=== PATIENT | male | born 1995 | race Two or more races ===

== ENCOUNTER 2020-05-27 11:26 | Outpatient (REF) | payer OTHER, SELFPAY | END 2020-05-27 11:27 | disposition home or self-care (01) | LOC: HO.LAB 11:26 | PROVIDERS: Visit Provider Internal Medicine | DX: Z20.828 Contact with and (suspected) exposure to other viral communicable diseases (principal) | CPT/HCPCS: 87635 ==

== ENCOUNTER 2020-07-20 11:54 | Outpatient (REF) | payer SELFPAY | END 2020-07-20 11:55 | disposition home or self-care (01) | LOC: HO.LAB 11:54 | PROVIDERS: Visit Provider Internal Medicine | DX: Z20.828 Contact with and (suspected) exposure to other viral communicable diseases (principal) | CPT/HCPCS: C9803; U0003 ==

== ENCOUNTER 2020-09-10 09:09 | Outpatient (REF) | payer SELFPAY | END 2020-09-10 09:10 | disposition home or self-care (01) | LOC: HO.LAB 09:09 | PROVIDERS: Visit Provider Internal Medicine | DX: Z20.822 Contact with and (suspected) exposure to COVID-19 (principal) | CPT/HCPCS: 36415; C9803; U0003; U0005 ==

== ENCOUNTER 2020-12-05 16:34 | Emergency (ER) | payer SELFPAY ==
[2020-12-05 16:36] VITALS: BP 116/77; PULSE 90; RESP 16; TEMP 36.2; O2SAT 99; BMI 36.2
[2020-12-05] MEDS: Tetracaine HCl/PF 0.5% Oph Sol 4 ML DROPS 3 DROP EYE-LEFT (18:11)
[2020-12-05] MEDS: Fluorescein Sodium STRIP 1 STRIP EYE-LEFT (18:11)
[2020-12-05 18:41] LABS: MANUAL DIFF FLAG NO
[2020-12-05 18:43] LABS: Basophils Absolute Auto 0.1 X10*3/uL (0.0-0.2); Basophils Percent Auto 0.9 % (0-2); Eosinophils Absolute Auto 0.1 X10*3/uL (0.0-0.4); Eosinophils Percent Auto 0.7 % (0-4); Hematocrit 35.7 % (42-52); Hemoglobin 11.8 g/dl (14.0-18.0); Imm Gran Abs Auto 0.03 X10*3/uL (0.00-0.03); Imm Gran Pct Auto 0.4 % (0.0-0.4); Lymphocytes Absolute Auto 2.3 X10*3/uL (1.2-4.9); Lymphocytes Percent Auto 28.7 % (20-40); Mean Corpuscular HGB Conc 33.1 g/dl (31.0-36.0); Mean Corpuscular Hemoglobin 31.6 pg (27.0-33.0); Mean Corpuscular Volume 95.7 fL (80-98); Mean Platelet Volume 9.9 fL (9.4-12.4); Monocytes Absolute Auto 0.6 X10*3/uL (0.1-1.2); Monocytes Percent Auto 7.3 % (2-11); Platelet Count 225 X10*3/uL (160-400); Red Blood Count 3.73 X10*6/uL (4.60-5.80); Red Cell Distribution Width 14.6 % (11.0-16.0); White Blood Count 8.1 X10*3/uL (4.8-10.8)
[2020-12-05 19:16] LABS: Alanine Aminotransferase 33 U/L (0-40); Alkaline Phosphatase 64 U/L (39-117); Anion Gap 13 (12-20); Aspartate Amino Transferase 48 U/L (5-37); Bilirubin Direct 0.2 mg/dL (0.0-0.5); Bilirubin Total 0.7 mg/dL (0.0-1.0); Blood Urea Nitrogen 14 mg/dL (9-16); Calcium 9.7 mg/dL (8.4-10.2); Carbon Dioxide 28 mmol/L (22-29); Chloride 101 mmol/L (96-108); Creatinine Clr Calc Pharmacy 109.2; Estimated Glomerular Filt Rate > 60; Glucose Random 94 mg/dL (60-115); Magnesium 2.4 mg/dL (1.6-2.6); Potassium 4.2 mmol/L (3.3-5.1); Sodium 138 mmol/L (135-145); Total Protein 7.8 g/dL (6.5-8.0)
[2020-12-05 19:36] LABS: TSH reflex Free T4 73.96 uIU/mL (0.32-4.0)
--- NOTE | 2020-12-05 19:56 | ED_ITS ---
HPI - Eye Problem General Chief complaint: Eye Problems Stated complaint: Eye problem Time Seen by Provider: 12/05/20 17:53 Source: patient Mode of arrival: ambulatory History of Present Illness HPI Narrative: 25-year-old male with a past medical history of thyroidectomy presenting to the ED complaining of left eye erythema, tearing/drainage, pruritus, and burning x1 week. Also reports generalized fatigue/increased lethargy x multiple months, has been non compliant with levothyroxine for almost 1 year due to issues with PCP. Denies vision change/loss, denies wearing contacts/glasses, blurry vision/double vision, headache, fever/chills, CP/SOB, abdominal pain, nausea/vomiting, lightheadedness/dizziness, waking/loss, diaphoresis chief complaint: eye redness Related Data Home Medications Medication Instructions Recorded Confirmed levothyroxine 150 mcg PO DAILY 12/05/20 12/05/20 Previous Rx's Medication Instructions Recorded levothyroxine 150 mcg PO DAILY 30 Days #30 tab 12/05/20 olopatadine 1 drp OPHTHALMIC (EYE) BID 7 Days 12/05/20 #5 ml Allergies Allergy/AdvReac Type Severity Reaction Status Date / Time No Known Allergies Allergy Verified 12/05/20 17:19 [No Known Allergies*] Review of Systems Review of Systems: Constitutional: No Weight loss, No Fever, No Chills, +Fatigue, + Malaise ENT/Mouth: No Hearing loss, No Ear Pain, NNo Hoarseness, No sore throat, No Rhinorrhea Eyes: No Eye Pain, No Swelling, + Redness, No Foreign Body, + Discharge, No Vision Changes Cardiovascular: No Chest Pain, No SOB, No Edema, No Palpitations Respiratory: No Cough, No Smoke Exposure, No Dyspnea Gastrointestinal: No Nausea, No Vomiting, No Diarrhea, No Abdominal pain Musculoskeletal: No joint pain, No Myalgias, No Joint Swelling Skin: No Skin Lesions, No rash Neuro: No Weakness, No Paresthesias, No Dizziness, No Headache Endocrine: No Temperature Intolerance Yes all other systems are reviewed and are negative [facility] Past Medical History Attestation statement: The following information was validated with the patient. Surgical History (Updated 12/05/20 @ 16:39 by Augustina Boucher RN) H/O thyroidectomy Social History Social History Alcohol intake: never Smoked in Last 30 Days: No Use of substances other than those prescribed or required for medical reasons: No Advance Directives: No Advance Directives Information Provided: Yes Physical Exam Vital Signs: Vital Signs: Last Vital Signs Temp 97.2 F 12/05/20 16:36 Pulse 90 12/05/20 16:36 Resp 16 12/05/20 16:36 BP 116/77 12/05/20 16:36 Pulse Ox 99 12/05/20 16:36 Body Mass Index 36.2 Const: General: cooperative, healthy appearing, comfortable and no acute distress Orientation/consciousness: patient oriented x3 Limitations: no limitations HENMT: Head: Yes normal to inspection Ears: hearing grossly normal bilaterally General nose exam: Normal external nose present Face and sinus: Yes normal facial exam Mouth: Normal oral and palatal mucosa present Eyes: Other: Left lower eyelid with mild swelling/puffiness and erythema with clear drainage/tearing from eye. For seen use without uptake, no evidence of corneal abrasion. No conjunctival injection General: appearance normal, both eyes and all related structures Periorbital: periorbital findings abnormal Conjunctivae: conjunctivae normal Sclerae: sclerae normal Corneas: corneas normal and fluorescein used Pupils: Equal, round and reactive pupils present EOM: EOMs intact bilaterally Direct Ophthalmoscopy: no photophobia Neck: Neck: Yes normal visual inspection and Yes no meningeal signs Resp: Effort & Inspection: normal respiratory effort Auscultation: clear to auscultation bilaterally, no rales, no rhonchi and no wheezes Cardio: Rate: regular rate Heart sounds: S1 normal heart sound present and S2 normal heart sound present GI: Inspection: Yes normal to inspection Palpation (GI): Soft to palpation, nontender, no guarding and not rigid Skin: Rashes: no rashes Wounds: no wounds Neuro: General: patient oriented x3, tone normal, moves all extremities and no meningeal signs Cranial nerves: Yes Equal, round and reactive pupils present Gait exam (Neuro): Normal gait present Extrem: General: Yes normal to inspection Course Course Course Narrative: -no leukocytosis. H&H stable slightly lower than baseline. AST mildly elevated -TSH markedly high with low free T4 consistent with medication noncompliance > will initiate patient back on his levothyroxine 150 mcg daily, stressed importance of follow-up with his PCP MDM - Eye Problem MDM Narrative Medical decision making narrative: 25-year-old male with a past medical history of thyroidectomy presenting to the ED complaining of left eye erythema, tearing/drainage, pruritus, and burning x1 week. Also reports generalized fatigue/increased lethargy x multiple months, has been non compliant with l evothyroxine for almost 1 year due to issues with PCP. On exam VSS, NAD/well- appearing, eye exam consistent with viral/allergic conjunctivitis. No fluorescein uptake. No evidence periorbital or orbital cellulitis. Concern for hypothyroidism due to medication noncompliance, unlikely myxedema coma. Rule out metabolic abnormalities an infectious etiology Plan: Labs, visual acuity, fluorescein staining Medical Records Attestation: I reviewed the patient's medical records. Lab Data Attestation: I reviewed the patient's lab results. Result diagrams: 12/05/20 18:36 12/05/20 18:36 Labs: Lab Results 12/05/20 12/05/20 Range/Units 18:36 18:36 WBC 8.1 (4.8-10.8) X10*3/uL RBC 3.73 L (4.60-5.80) X10*6/uL Hgb 11.8 L (14.0-18.0) g/dl Hct 35.7 L (42-52) % MCV 95.7 (80-98) fL MCH 31.6 (27.0-33.0) pg MCHC 33.1 (31.0-36.0) g/dl RDW 14.6 (11.0-16.0) % Plt Count 225 (160-400) X10*3/uL MPV 9.9 (9.4-12.4) fL Immature Gran % (Auto) 0.4 (0.0-0.4) % Neut % (Auto) 62.0 (45-73) % Lymph % (Auto) 28.7 (20-40) % [place] % (Auto) 7.3 (2-11) % Eos % (Auto) 0.7 (0-4) % Baso % (Auto) 0.9 (0-2) % Lymph # (Auto) 2.3 (1.2-4.9) X10*3/uL [place] # (Auto) 0.6 (0.1-1.2) X10*3/uL Eos # (Auto) 0.1 (0.0-0.4) X10*3/uL Baso # (Auto) 0.1 (0.0-0.2) X10*3/uL Abs Immat Gran (auto) 0.03 (0.00-0.03) X10*3/uL Absolute Neuts (auto) 5.0 (2.0-8.3) X10*3/uL Absolute Nucleated RBC 0.000 (0.0-0.012) X10*3/uL Nucleated RBC % (auto) 0.0 (0.0-0.2) /100WBC Sodium 138 (135-145) mmol/L Potassium 4.2 (3.3-5.1) mmol/L Chloride 101 (96-108) mmol/L Carbon Dioxide 28 (22-29) mmol/L Anion Gap 13 (12-20) BUN 14 (9-16) mg/dL Creatinine 1.35 (0.5-1.4) mg/dL Estim Creat Clear Calc 109.2 Estimated GFR > 60 Random Glucose 94 (60-115) mg/dL Calcium 9.7 (8.4-10.2) mg/dL Magnesium 2.4 (1.6-2.6) mg/dL Total Bilirubin 0.7 (0.0-1.0) mg/dL Direct Bilirubin 0.2 (0.0-0.5) mg/dL AST 48 H (5-37) U/L ALT 33 (0-40) U/L Alkaline Phosphatase 64 (39-117) U/L Total Protein 7.8 (6.5-8.0) g/dL Albumin 5.0 (3.5-5.0) g/dL TSH 73.96 H (0.32-4.0) uIU/mL Free T4 < 0.40 L (0.71-1.85) ng/dL Discharge Plan Discharge Clinical Impression: Acute allergic conjunctivitis, Hypothyroidism Patient Disposition: Home, Self-Care Instructions: Hypothyroidism (ED), Conjunctivitis (ED) Additional Instructions: Your blood work shows evidence of hypothyroid consistent with you not taking your levothyroxine. Re-initiate your previously prescribed dose. It is crucial that he follow-up with a primary care doctor soon as possible. You need these levels monitored very closely A limp today in drops will help with your eye irritation/allergic conjunctivitis. In addition you can take [id number] Claritin or Zyrtec daily and Benadryl at night If her symptoms persist or worsen, you have fever, headache, visual change/loss, return to the ED Prescriptions: New levothyroxine 150 mcg tablet 150 mcg PO DAILY 30 Days Qty: 30 RF: 0 olopatadine 0.1 % drops 1 drp ophthalmic (eye) BID 7 Days Qty: 5 RF: 0 No Action levothyroxine 150 mcg Tablet 150 mcg PO DAILY RF: 0 Referrals: Robert Tobar PA-C [Physician [employer]] - 2 days Po,Joo Balderrama MD [Physician] - 2 days
[2020-12-05 20:09] LABS: Free T4 (Free Thyroxine) < 0.40 ng/dL (0.71-1.85)
== END 2020-12-05 20:54 | disposition home or self-care (01) ==
PROVIDERS: Physician Assistant; Emergency Provider Emergency Medicine; PCP Internal Medicine
DX: H10.12 Acute atopic conjunctivitis, left eye (principal); E03.9 Hypothyroidism, unspecified; Z91.14 Patient's other noncompliance with medication regimen
CPT/HCPCS: 36415; 80048; 80076; 83735; 84439; 84443; 85025; 99282; 99283; 99284

== ENCOUNTER 2021-04-03 08:54 | Emergency (ER) | payer MEDICAID, SELFPAY ==
--- NOTE | ~2021-04-03 | XR_ITS ---
EXAMINATION: XR CHEST CLINICAL INFORMATION: Healing out of breath when he wakes up. Question sleep apnea. COMPARISON: Previous exam most recent October 2018 TECHNIQUE: 2 views of the chest were obtained. FINDINGS: No significant abnormality is noted involving the heart, lungs, mediastinum, bony thorax or soft tissues. XR/XR chest 2V IMPRESSION: Unremarkable examination.
[2021-04-03 08:59] VITALS: BP 110/70; PULSE 69; RESP 18; TEMP 36.9; O2SAT 98; BMI 32.1
--- NOTE | 2021-04-03 10:09 | ED_ITS ---
HPI - SOB/Dyspnea General Chief Complaint: General Medical Stated Complaint: WOKE UP DIFF BREATHING CHOKING Time Seen by Provider: 04/03/21 09:12 Source: patient Mode of arrival: ambulatory Limitations: no limitations History of Present Illness HPI Narrative: 25-year-old male presenting to the ED with complaints of worsening shortness of breath over the past 3 weeks when he wakes up in the mornings usually at least once a week for the past 3 weeks. He reports that he sleeps with his and his autistic son and his has told him that he sounds like he stays without breathing occasionally throughout the night and he snores. He contacted his PCP and has a follow-up appointment in the next few weeks although was concerned because he had an episode this morning. He reports he feels nasal congestion that has increased over the past 3 weeks. Reports that he does not want to be tested for COVID and does not believe he has COVID because he works at [employer] and is completely vaccinated. He believes he has sleep apnea but wants to make sure that he has nothing on his chest. He denies any fevers, chills, chest pain, cough, sore throat, dyspnea on exertion, orthopnea, palpitations, recent travel or sick contacts, hypercoagulation disorder, any estrogen usage, history of PE or DVT, recent surgery or immobilization or any IV drug use. Denies any other symptoms complaints or concerns at this time. MD elicited complaint: shortness of breath Onset (ago): week(s) (Intermittently when he wakes up over the past 3 weeks al though resolved shortly after) Context: other (Overnight) Timing: intermittent (Approximately 1 episode once a week) Severity: moderate Exacerbating factors: nothing Relieving factors: nothing Associated symptoms: denies other symptoms Treatment prior to arrival: none Related Data Home oxygen amount: none Home Medications Medication Instructions Recorded Confirmed levothyroxine 150 mcg tablet 150 mcg PO DAILY 12/05/20 12/05/20 Previous Rx's Medication Instructions Recorded levothyroxine 150 mcg tablet 150 mcg PO DAILY 30 Days #30 tab 12/05/20 olopatadine 0.1 % eye drops 1 drp OPHTHALMIC (EYE) BID 7 Days 12/05/20 #5 ml albuterol sulfate 90 mcg/actuation 1 inh INHALATION QID PRN #8.5 g 04/03/21 aerosol inhaler fluticasone propionate 50 1 spray INTRANASAL BID #16 g 04/03/21 mcg/actuation nasal spray,suspension (Flonase Allergy Relief) loratadine 10 mg tablet (Claritin) 10 mg PO BID PRN #30 tab 04/03/21 Allergies Allergy/AdvReac Type Severity Reaction Status Date / Time No Known Allergies Allergy Verified 12/05/20 17:19 [No Known Allergies*] Review of Systems Review of Systems: Constitutional : No Weight loss, No Fever, No Chills, No Night Sweats, No Fatigue, No Malaise ENT/Mouth : No Hearing loss, No Ear Pain, No Nasal Congestion, No Sinus Pain, No Hoarseness, No sore throat, No Rhinorrhea, No Swallowing Difficulty Eyes: No Eye Pain, No Swelling, No Redness, No Foreign Body, No Discharge, No Vision Changes Cardiovascular : Positive shortness of breath when he awakens intermittently over the past 3 weeks, no shortness of breath at this time, No Chest Pain, No Dyspnea on Exertion, No Orthopnea, No Edema, No Palpitations Respiratory : No Cough, No Sputum, No Wheezing, No Smoke Exposure, No Dyspnea Gastrointestinal : No Nausea, No Vomiting, No Diarrhea, No Constipation, No abdominal Pain, No Hematochezia, No Melena Genitourinary : no irregular bleeding, No Dysuria, No Urinary Frequency, No Hematuria, No Urinary Incontinence, No Urgency, No Flank Pain, No Urinary Flow Changes, No Hesitancy Musculoskeletal : No joint pain, No Myalgias, No Joint Swelling Skin : No Skin Lesions, No rash Neuro : No Weakness, No Numbness, No Paresthesias, No Loss of Consciousness, No Dizziness, No Headache Psych : No Anxiety/Panic, No Depression, No SI/HI/AH/VH, No Social Issues, Heme/Lymph: No Bruising, No Bleeding,No Lymphadenopathy Endocrine : No Polyuria, No Polydipsia, No Temperature Intolerance Yes all other systems are reviewed and are negative [facility] Past Medical History Attestation statement: The following information was validated with the patient. Surgical History H/O thyroidectomy Social History Social History Alcohol intake: never Advance Directives: Yes Advance Directives Information Provided: No Advance Directives on File: No Physical Exam Vital Signs: Vital Signs: Last Vital Signs Temp 98.4 F 04/03/21 08:59 Pulse 69 04/03/21 08:59 Resp 18 04/03/21 08:59 BP 110/70 04/03/21 08:59 Pulse Ox 98 04/03/21 08:59 Body Mass Index 32.1 vital signs have been reviewed as normal and appeared to be correct. Blood pressure normal. Heart rate normal. Respiration rate normal. Temperature normal. Oxygen saturation normal. Appearance: Alert. Oriented X3. No acute distress. Head: Normal external exam. Normocephalic. Atraumatic. Eyes: PERRLA. EOMI. Conjunctiva and sclera normal. Eyelids normal. ENT: EAC normal. TM's Normal. Pharynx normal. Uvula midline. Moist mucous membranes. No trismus noted. No drooling noted. No muffled voice noted. Neck: Normal inspection. Neck supple. FROM. No adenopathy. Thyroid Normal. No meningeal signs. No neck mass noted. CVS: Normal heart rate and rhythm. Heart sound normal. Pulses normal throughout. No murmurs/rales/gallops. Respiratory: No respiratory distress. Painless inspiration. Breath sounds normal. No wheezes/rales/rhonchi noted. Chest nontender. No accessory muscle usage noted or decreased air movement noted. Back: Full range of motion noted. No rashes/lesion/induration/fluctuance or signs of infection noted. Skin: Skin warm and dry. Normal skin color. Normal skin turgor. No rashes/lesions/lacerations noted. Extremities: No lower extremity edema. No calf tenderness is noted. Extremities exhibit normal range of motion. Extremities nontender. Neuro: Oriented X 3. No motor deficit. No sensory deficit. Reflexes normal. Normal steady gait. No focal neuro deficits noted. Vascular: + radial pulses/+ 2 distal pedal pulses/+2 dorsalis pedis b/l. Normal cap refill. No cyanosis noted to upper extremity nails and lower extremity toes nails. Course Course Course Narrative: 25-year-old male presenting to the ED with complaints of worsening shortness of breath when he awakens 1 episode once a week over the past 3 weeks with associated snoring and stand without breath per his spouse believes he has sleep apnea. Has a follow-up appointment with his PCP this month although wanted to make sure he had nothing on his chest. Perc negative. Not consistent with LA. not consistent with aortic dissection. Not consistent with COVID. Not consistent with asthma at this time. X-ray obtained and negative for any acute processes. Will place the patient on albuterol inhaler and some Claritin due to patient's increased of nasal congestion may be related to the patient's allergies I explained to him that he will need a sleep study exam and he understands to follow up with his primary care provider and keep his appointment for his sleep study and to return if any new or worsening symptoms. Patient understands agrees with this plan. MDM - SOB/Dyspnea Medical Records Attestation: I reviewed the patient's medical records. Imaging Data Chest x-ray: Attestation: I personally reviewed and interpreted this imaging study as follows: Radiologist's impression: FINDINGS: No significant abnormality is noted involving the heart, lungs, mediastinum, bony thorax or soft tissues. XR/XR chest 2V IMPRESSION: Unremarkable examination. Discharge Plan Discharge Clinical Impression: Sleep apnea, Allergic rhinitis Patient Disposition: Home, Self-Care Instructions: Sleep Apnea (DC), Allergic Rhinitis (ED) Additional Instructions: CLINICAL INFORMATION: Feeling out of breath when he wakes up. Question sleep apnea. COMPARISON: Previous exam most recent October 2018 TECHNIQUE: 2 views of the chest were obtained. FINDINGS: No significant abnormality is noted involving the heart, lungs, mediastinum, bony thorax or soft tissues. XR/XR chest 2V IMPRESSION: Unremarkable examination. Your chest x-ray was within normal limits there are no acute processes that we can see at this time. Please follow-up with your primary care provider for your sleep study exam and return if any new or worsening symptoms. Prescriptions: New albuterol sulfate 90 mcg/actuation HFA aerosol inhaler 1 inh inhalation QID PRN (Reason: shortness of breath or wheezing) Qty: 8.5 RF: 0 loratadine [Claritin] 10 mg tablet 10 mg PO BID PRN (Reason: allergies) Qty: 30 RF: 0 fluticasone propionate [Flonase Allergy Relief] 50 mcg/actuation spray,suspension 1 spray intranasal BID Qty: 16 RF: 0 No Action levothyroxine 150 mcg Tablet 150 mcg PO DAILY RF: 0 levothyroxine 150 mcg tablet 150 mcg PO DAILY 30 Days Qty: 30 RF: 0 olopatadine 0.1 % drops 1 drp ophthalmic (eye) BID 7 Days Qty: 5 RF: 0 Referrals: Shravan Rodrigez MD [Physician] - 2 days Physician,Unknown [Primary Care Provider] - 2 days (your pcp) Stand Alone Forms: Work/School Release Interventions: ED Discharge Assessment Last Done: 04/03/21 10:23 Discharge Date/Time: 04/03/21 10:25 Print Language: Burundian
== END 2021-04-03 10:25 | disposition home or self-care (01) ==
PROVIDERS: Emergency Provider Student in an Organized Health Care Education/Training Program
DX: G47.30 Sleep apnea, unspecified (principal); J30.9 Allergic rhinitis, unspecified; R06.02 Shortness of breath
CPT/HCPCS: 71046; 99283

== ENCOUNTER 2021-06-29 13:39 | Outpatient (REF) | payer MEDICAID, SELFPAY | END 2021-06-29 13:40 | disposition home or self-care (01) | LOC: HO.LAB 13:39 | PROVIDERS: Visit Provider Internal Medicine | DX: Z20.822 Contact with and (suspected) exposure to COVID-19 (principal) | CPT/HCPCS: C9803; U0003; U0005 ==

== ENCOUNTER 2021-07-11 11:42 | Emergency (ER) | payer MEDICAID, SELFPAY ==
--- NOTE | ~2021-07-11 | XR_ITS ---
EXAMINATION: XR CHEST CLINICAL INFORMATION: Cough with sputum, shortness of breath. COMPARISON: 04/03/2021 chest radiographs. TECHNIQUE: Frontal view of the chest was obtained. FINDINGS: No significant abnormality is noted involving the heart, lungs, mediastinum, bony thorax or soft tissues. XR/XR chest 1V IMPRESSION: No acute cardiopulmonary process.
[2021-07-11 11:47] VITALS: BP 124/86; RESP 18; TEMP 36.9; O2SAT 100; BMI 32.8
--- NOTE | 2021-07-11 11:56 | ED.URI ---
HPI - URI/Sore Throat General Chief Complaint: Upper Respiratory Symptoms Stated Complaint: stuffy nose cough Time Seen by Provider: 07/11/21 11:56 Source: patient Mode of arrival: ambulatory Limitations: no limitations History of Present Illness HPI Narrative: 25-year-old male no known medical history presents to the emergency department with complaints of cough with sputum production, malaise, lack of taste/smell, subjective fevers and chills, rhinorrhea times 4 days. Patient tells me that what is bothering him the most is his productive cough, he tells me that he coughs up thick sputum, that is yellow/green in color. He tells me it feels like the time he had pneumonia. He is vaccinated against COVID-19. Denies chest pain, headache, dizziness, nausea, vomiting, abdominal pain. MD elicited complaint: fever (subjective ), cough and rhinorrhea Consistency: constant Severity: moderate Description of mucous: yellow and green Able to tolerate fluids by mouth: Yes Exacerbating factors: nothing Relieving factors: nothing Associated symptoms: fever, chills, myalgias, rhinorrhea and cough Treatments prior to arrival: none Related Data Home Medications Medication Instructions Recorded Confirmed levothyroxine 150 mcg tablet 150 mcg PO DAILY 12/05/20 12/05/20 Previous Rx's Medication Instructions Recorded levothyroxine 150 mcg tablet 150 mcg PO DAILY 30 Days #30 tab 12/05/20 olopatadine 0.1 % eye drops 1 drp OPHTHALMIC (EYE) BID 7 Days 12/05/20 #5 ml albuterol sulfate 90 mcg/actuation 1 inh INHALATION QID PRN #8.5 g 04/03/21 aerosol inhaler fluticasone propionate 50 1 spray INTRANASAL BID #16 g 04/03/21 mcg/actuation nasal spray,suspension (Flonase Allergy Relief) loratadine 10 mg tablet (Claritin) 10 mg PO BID PRN #30 tab 04/03/21 azithromycin 250 mg tablet See Rx Instructions PO .COMPLEX #6 07/11/21 tab codeine 8 mg-guaifenesin 200 mg/5 5 ml PO Q6H PRN #100 ml 07/11/21 mL oral liquid Allergies Allergy/AdvReac Type Severity Reaction Status Date / Time No Known Allergies Allergy Verified 12/05/20 17:19 [No Known Allergies*] Review of Systems Review of Systems: Constitutional : + Fever, + Chills, + fatigue, + Malaise ENT/Mouth : No sore throat, + runny nose Eyes: No Discharge Cardiovascular : No Chest Pain, No SOB Respiratory : + Cough, + Sputum Gastrointestinal : No Nausea, No Vomiting, No Diarrhea Genitourinary : No Dysuria, No Urinary Frequency Musculoskeletal : + Myalgia Skin : No rash Neuro : No Headache Yes all other systems are reviewed and are negative [facility] Past Medical History Attestation statement: The following information was validated with the patient. Source: old records reviewed and nursing notes reviewed Surgical History H/O thyroidectomy Social History Social History Alcohol intake: never Advance Directives: No Advance Directives Information Provided: No Physical Exam Vital Signs: Vital Signs: Last Vital Signs Temp 98.5 F 07/11/21 11:47 Resp 18 07/11/21 11:47 BP 124/86 07/11/21 11:47 Pulse Ox 100 07/11/21 11:47 BMI result Body Mass Index 32.8 VSS Appearance: Alert.? Oriented X3.? No acute distress.? Head: Normocephalic, atraumatic, no step-offs or deformities Eyes: Pupils equal, round and reactive to light.? ENT: Pharynx normal.? Neck: Normal inspection.? Neck supple.? CVS: Normal heart rate and rhythm.? Pulses normal.? Respiratory: No respiratory distress.? + faint crackles to bilateral lower lobes. Abdomen: Soft and nontender.? Skin: Skin warm and dry.? Normal skin color.? Normal skin turgor.? Extremities: No lower extremity edema.? No calf ttp. 5/5 strength to bilateral upper and lower extremities Back: No midline tenderness, no C-spine tenderness, full range of motion, no CVA tenderness bilaterally Neuro: Oriented X 3.? No motor deficit.? No sensory deficit. Course Reevaluation(s) Reevaluation #1: CXR negative. FLU/COVID/RSV neagtive, Will treat for bacterial bronchitis due to patients symptoms. Patient's vital signs are stable, have instructed patient to follow-up with PCP, return to the emergency department with new or worsening symptoms. Comfortable w/ discharge home. Time: 13:08 MDM - URI/Sore Throat MDM Narrative Medical decision making narrative: 1210 25-year-old male no known medical history presents with upper respiratory symptoms, productive cough, and subjective fevers x4 days. Patient is vaccinated. Physical examination significant for bilateral faint crackles to lower lobes. Patient appears well, vital signs are stable. Plan at this time is to obtain flu/COVID/RSV. I will also obtain a chest x-ray to rule out pneumonia. Medical Records Attestation: I reviewed the patient's medical records. Lab Data Attestation: I reviewed the patient's lab results. Imaging Data Chest x-ray: Attestation: I personally reviewed and interpreted this imaging study as follows: Radiologist's impression: FINDINGS: No significant abnormality is noted involving the heart, lungs, mediastinum, bony thorax or soft tissues. XR/XR chest 1V IMPRESSION: No acute cardiopulmonary process. Critical Care Time Critical Care Time Critical Care Time: No Discharge Plan Discharge Clinical Impression: Bronchitis Patient Disposition: Home, Self-Care Instructions: Acute Bronchitis (ED) Additional Instructions: Take your medications as prescribed. If you were prescribed antibiotics today, it is important that you take your medication to their entirety, do not skip any doses, do not finish them early. Follow-up with your primary care provider this week. Return to the emergency department with new or worsening symptoms. In case of emergency call 911 Prescriptions: New codeine-guaifenesin 8-200 mg/5 mL liquid 5 ml PO Q6H PRN (Reason: cough) Qty: 100 RF: 0 azithromycin 250 mg tablet See Rx Instructions PO .COMPLEX Qty: 6 RF: 0 No Action levothyroxine 150 mcg Tablet 150 mcg PO DAILY RF: 0 levothyroxine 150 mcg tablet 150 mcg PO DAILY 30 Days Qty: 30 RF: 0 olopatadine 0.1 % drops 1 drp ophthalmic (eye) BID 7 Days Qty: 5 RF: 0 albuterol sulfate 90 mcg/actuation HFA aerosol inhaler 1 inh inhalation QID PRN (Reason: shortness of breath or wheezing) Qty: 8.5 RF: 0 loratadine [Claritin] 10 mg tablet 10 mg PO BID PRN (Reason: allergies) Qty: 30 RF: 0 fluticasone propionate [Flonase Allergy Relief] 50 mcg/actuation spray,suspension 1 spray intranasal BID Qty: 16 RF: 0 Referrals: Physician,Unknown J [Primary Care Provider] - 2 days Stand Alone Forms: Work/School Release
[2021-07-11 12:38] LABS: Influenza A PCR NEGATIVE (Negative); Influenza B PCR NEGATIVE (Negative); Resp Syncy Virus RNA Qual PCR NEGATIVE (Negative); SARS COV2 PCR INHOUSE NEGATIVE (Negative)
== END 2021-07-11 13:27 | disposition home or self-care (01) ==
PROVIDERS: Emergency Provider Emergency Medicine
DX: J40 Bronchitis, not specified as acute or chronic (principal); Z20.822 Contact with and (suspected) exposure to COVID-19
CPT/HCPCS: 0241U; 36415; 71045; 99283

== ENCOUNTER 2021-08-29 08:40 | Emergency (ER) | payer MEDICAID, SELFPAY ==
[2021-08-29 08:44] VITALS: BP 113/68; PULSE 57; RESP 19; TEMP 36.6; O2SAT 100; BMI 34.2
--- NOTE | 2021-08-29 09:09 | ED_ITS ---
HPI - URI/Sore Throat General Chief Complaint: Upper Respiratory Symptoms Stated Complaint: sore throat, swelling Time Seen by Provider: 08/29/21 08:58 Source: patient and RN notes reviewed Mode of arrival: ambulatory Limitations: no limitations History of Present Illness HPI Narrative: Pt woke up this morning with a sorethroat, mild ADAM. Denies fever, chills, n/v/d, no loss of tast or smell. 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 Pt also complaining of sleep apnea, he is scheduled for a sleep study and under the care of a pcp for this. There are no new symptoms regarding waking up or not being able to breath at night. Pt also with hx of GERD and currently taking nexium for heart burn. No symptoms today. Treatments prior to arrival: none Related Data Home Medications Medication Instructions Recorded Confirmed levothyroxine 150 mcg tablet 150 mcg PO DAILY 12/05/20 12/05/20 Previous Rx's Medication Instructions Recorded levothyroxine 150 mcg tablet 150 mcg PO DAILY 30 Days #30 tab 12/05/20 olopatadine 0.1 % eye drops 1 drp OPHTHALMIC (EYE) BID 7 Days 12/05/20 #5 ml albuterol sulfate 90 mcg/actuation 1 inh INHALATION QID PRN #8.5 g 04/03/21 aerosol inhaler fluticasone propionate 50 1 spray INTRANASAL BID #16 g 04/03/21 mcg/actuation nasal spray,suspension (Flonase Allergy Relief) loratadine 10 mg tablet (Claritin) 10 mg PO BID PRN #30 tab 04/03/21 azithromycin 250 mg tablet See Rx Instructions PO .COMPLEX 07/11/21 #6 tab codeine 8 mg-guaifenesin 200 mg/5 5 ml PO Q6H PRN #100 ml 07/11/21 mL oral liquid benzonatate 100 mg capsule 100 mg PO TID PRN #20 cap 08/29/21 Allergies Allergy/AdvReac Type Severity Reaction Status Date / Time No Known Allergies Allergy Verified 12/05/20 17:19 [No Known Allergies*] Review of Systems Verdana 4l Review of Systems: Verdana 4d Verdana 4d Constitutional : No trauma, No Weight loss, No Fever, No Chills, ENT/Mouth : No Hearing loss, No Ear Pain, No Nasal Congestion, No Sinus Pain, No Hoarseness, + sore throat, No Rhinorrhea, No Swallowing Difficulty Cardiovascular : No Chest Pain, No SOB Respiratory : No Cough, No Dyspnea Gastrointestinal : No Nausea, No Vomiting, No Diarrhea, No abdominal Pain, Genitourinary : No Dysuria, No Urinary Frequency, No Hematuria, No Urinary or Bowel Incontinence/retention? Musculoskeletal : No Back pain, No neck pain, No joint stiffness, No joint swelling Skin : No Skin Lesions, No rash or signs of infection Neuro : No Weakness, No radiation, No Numbness, Psych : No SI/HI/thoughts of self injury Yes all other systems are reviewed and are negative [facility] Past Medical History Attestation statement: The following information was validated with the patient. 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 Blood pressure normal.? Heart rate normal.? Respiration rate normal.? Temperature normal.? Oxygen saturation normal. Appearance: Alert. Oriented X3. No acute distress. ? Head: Normal external exam. Normocephalic. Atraumatic.? Eyes: PERRLA. EOMI. Conjunctiva and sclera normal. Eyelids normal. ? ENT: EAC normal. TMs Normal. Pharynx normal. Uvula midline. Moist mucous membranes. ? No trismus noted.? No drooling noted.? No muffled voice noted. Neck: Normal inspection. Neck supple. Normal ROM. + mild left anterier lymphnode swelling. No meningeal signs. No neck mass noted. CVS: Normal heart rate and rhythm. Heart sound normal. No murmurs noted. Respiratory: No respiratory distress. Painless inspiration. Breath sounds normal. No wheezes/rales/rhonchi noted. Chest nontender. ? No accessory muscle usage noted or decreased air movement noted. Abdomen: Soft and nontender. Back: ?? Full range of motion noted. Skin: Skin warm and dry.? Normal skin color.? Normal skin turgor. No rashes/lesions/lacerations noted. Extremities: No lower extremity edema. ? Extremities exhibit normal range of motion.? Extremities nontender. Normal gait Neuro: Oriented X 3.? No motor deficit noted. No sensory deficit noted. MDM - URI/Sore Throat Lab Data Attestation: I reviewed the patient's lab results. Labs: Lab Results 08/29/21 08/29/21 Range/Units 08:50 08:50 COVID-19 (SURINDER) Negative (Negative) COVID-19 Clin Com See Note S. pyogenes GrpA MEMO Negative (Negative) Discharge Plan Discharge Clinical Impression: Upper respiratory infection Patient Disposition: Home, Self-Care Instructions: Upper Respiratory Infection (ED) Additional Instructions: Your strep throat test and covid test were negative today. You are being given a note for work. You should be retested in 2-3 days for Covid before returning to work. Return if worse. Take ibuprofen or tylenol as needed for pain/fever. Drink plenty of fluids and rest. Prescriptions: New benzonatate 100 mg capsule 100 mg PO TID PRN (Reason: cough) Qty: 20 0RF No Action levothyroxine 150 mcg Tablet 150 mcg PO DAILY 0RF levothyroxine 150 mcg tablet 150 mcg PO DAILY 30 Days Qty: 30 0RF olopatadine 0.1 % drops 1 drp ophthalmic (eye) BID 7 Days Qty: 5 0RF Rx Instructions: separate doses by at least 6-8 hours albuterol sulfate 90 mcg/actuation HFA aerosol inhaler 1 inh inhalation QID PRN (Reason: shortness of breath or wheezing) Qty: 8.5 0RF loratadine [Claritin] 10 mg tablet 10 mg PO BID PRN (Reason: allergies) Qty: 30 0RF fluticasone propionate [Flonase Allergy Relief] 50 mcg/actuation spray,suspension 1 spray intranasal BID Qty: 16 0RF Rx Instructions: administer into each nostril codeine-guaifenesin 8-200 mg/5 mL liquid 5 ml PO Q6H PRN (Reason: cough) Qty: 100 0RF Rx Instructions: Patient can partially fill prescription upon request azithromycin 250 mg tablet See Rx Instructions PO .COMPLEX Qty: 6 0RF Rx Instructions: For 250 mg dose pack: take 500 mg today (day 1), then 250 mg for 4 days (days 2-5) Referrals: [facility] [Primary Care Provider] - 2 days Stand Alone Forms: Work/School Release
[2021-08-29 09:12] LABS: IDNOW Serial# 9DD0AD1C; Strep A Nucleic Acid Negative (Negative)
[2021-08-29 09:13] LABS: COVID-19 Test Negative (Negative)
== END 2021-08-29 09:20 | disposition home or self-care (01) ==
PROVIDERS: Emergency Provider Emergency Medicine
DX: J06.9 Acute upper respiratory infection, unspecified (principal); Z20.822 Contact with and (suspected) exposure to COVID-19; Z79.899 Other long term (current) drug therapy
CPT/HCPCS: 87635; 87651; 99283

== ENCOUNTER → 2022-01-09 20:59 | Outpatient (REF) | payer MEDICAID, SELFPAY | LOC: HO.SL 20:59 | PROVIDERS: Visit Provider Registered Nurse | DX: G47.33 Obstructive sleep apnea (adult) (pediatric) (principal); R06.83 Snoring; Z68.33 Body mass index [BMI] 33.0-33.9, adult; Z79.899 Other long term (current) drug therapy | CPT/HCPCS: 95811 ==

== ENCOUNTER 2022-01-16 05:45 | Emergency (ER) | payer MEDICAID, SELFPAY ==
[2022-01-16 05:57] VITALS: BP 123/74; PULSE 49; RESP 16; TEMP 36.4; O2SAT 100; BMI 33.5
--- NOTE | 2022-01-16 06:01 | ECG_ITS ---
Test Reason : CHEST PAIN Blood Pressure : / mmHG Vent. Rate : 036 BPM Atrial Rate : 036 BPM P-R Int : 190 ms QRS Dur : 098 ms QT Int : 424 ms P-R-T Axes : 061 066 059 degrees QTc Int : 327 ms Marked sinus bradycardia Nonspecific ST and T wave abnormality Abnormal ECG When compared with ECG of 28-FEB-2019 13:53, Vent. rate has decreased BY 36 BPM T wave inversion now evident in Anterior leads QT has shortened Referred By: Generic ED Physician Electronically Signed By:Everette Li
[2022-01-16 06:29] LABS: MANUAL DIFF FLAG NO
[2022-01-16 06:30] LABS: Basophils Absolute Auto 0.1 X10*3/uL (0.0-0.2); Basophils Percent Auto 0.9 % (0-2); Eosinophils Absolute Auto 0.1 X10*3/uL (0.0-0.4); Eosinophils Percent Auto 0.9 % (0-4); Hematocrit 43.9 % (42.0-52.0); Hemoglobin 14.3 g/dl (14.0-18.0); Imm Gran Abs Auto 0.03 X10*3/uL (0.00-0.03); Imm Gran Pct Auto 0.3 % (0.0-0.4); Lymphocytes Absolute Auto 2.3 X10*3/uL (1.2-4.9); Lymphocytes Percent Auto 23.6 % (20-40); Mean Corpuscular HGB Conc 32.6 g/dl (31.0-36.0); Mean Corpuscular Hemoglobin 31.2 pg (27.0-33.0); Mean Corpuscular Volume 95.9 fL (80.0-98.0); Mean Platelet Volume 10.2 fL (9.4-12.4); Monocytes Absolute Auto 0.8 X10*3/uL (0.1-1.2); Monocytes Percent Auto 7.9 % (2-11); Neutrophils Absolute Auto 6.4 x10*3/uL (2.0-8.3); Neutrophils Percent Auto 66.4 % (45-73); Platelet Count 261 X10*3/uL (160-400); Red Blood Count 4.58 X10*6/uL (4.60-5.80); Red Cell Distribution Width 13.8 % (11.0-16.0); White Blood Count 9.6 X10*3/uL (4.8-10.8)
[2022-01-16 06:43] LABS: Anion Gap 14 (12-20); Blood Urea Nitrogen 16 mg/dL (9-16); Calcium 9.3 mg/dL (8.4-10.2); Carbon Dioxide 23 mmol/L (22-29); Chloride 104 mmol/L (96-108); Estimated Glomerular Filt Rate > 60; Glucose Random 86 mg/dL (60-115); Potassium 4.6 mmol/L (3.3-5.1); Sodium 136 mmol/L (135-145)
[2022-01-16 06:50] LABS: Troponin-I High Sensitivity < 3.5 ng/L (<3.5-35.0)
--- NOTE | 2022-01-16 06:52 | ED_ITS ---
HPI - Chest Pain General Chief Complaint: Chest Pain Stated Complaint: chest pain, difficulty breathing; on thyroid meds Time Seen by Provider: 01/16/22 06:52 Source: patient Mode of arrival: ambulatory Limitations: no limitations History of Present Illness HPI narrative: 26-year-old male who presents emergency department for evaluation of chest pain, abdominal pain and fatigue. The patient states that he had a thyroidectomy secondary to cancer approximately 10 years prior. States that he ran out of his levothyroxine approximately 1 week prior and has not been taking the medication. States that over the past week he has been feeling very tired and weak and he feels like his body is shutting down. He states that yesterday developed throat, chest and abdominal pain which she states felt similar to his heartburn pain. The patient is supposed to be taking omeprazole but has not taken this medication over the past 2-3 days. The patient runs his hand along his throat chest and abdomen when asked to localize his discomfort. Describes the pain is a constant, burning pain which waxes and wanes in intensity. States that it started yesterday around 13:00 hours he took some Tums with some relief his pain. he had associated nausea with no vomiting. He denied any changes bowel movements. He states that he had a sleep struck the last week and was noted to be bradycardic. MD complaint: chest pain Onset (ago): day(s) (2) Timing of current episode: episodic Prior episodes: Yes Onset: during rest and during exertion Pain location: substernal, epigastric and other ( Throat) Pain radiation: none Severity: moderate Quality: burning Relieving factors: antacids Exacerbating factors: nothing Context: other ( ran out of his levothyroxine) Associated symptoms: nausea Treatment prior to arrival: none Related Data Home Medications Medication Instructions Recorded Confirmed levothyroxine 150 mcg tablet 150 mcg PO DAILY 12/05/20 12/05/20 Previous Rx's Medication Instructions Recorded levothyroxine 150 mcg tablet 150 mcg PO DAILY 30 days #30 tabs 12/05/20 olopatadine 0.1 % eye drops 1 drp ophthalmic (eye) BID 7 days 12/05/20 #5 mL albuterol sulfate 90 mcg/actuation 1 inh inhalation QID PRN shortness 04/03/21 aerosol inhaler of breath or wheezing #8.5 grams fluticasone propionate 50 1 spray intranasal BID Sinus 04/03/21 mcg/actuation nasal congestion #16 grams spray,suspension (Flonase Allergy Relief) loratadine 10 mg tablet (Claritin) 10 mg PO BID PRN allergies #30 tabs 04/03/21 azithromycin 250 mg tablet See Rx Instructions PO .COMPLEX #6 07/11/21 tabs codeine 8 mg-guaifenesin 200 mg/5 5 ml PO Q6H PRN cough #100 mL 07/11/21 mL oral liquid benzonatate 100 mg capsule 100 mg PO TID PRN cough #20 caps 08/29/21 Allergies Allergy/AdvReac Type Severity Reaction Status Date / Time No Known Allergies Allergy Verified 01/16/22 06:01 [No Known Allergies*] Review of Systems Review of Systems: Yes all other systems are reviewed and are negative [facility] Past Medical History [facility] Narrative: Past medical history: Asthma, GERD, patient states that he had thyroid cancer 10 years prior had a thyroidectomy and is on levothyroxine which she has been noncompliant with. Social history: He denies tobacco, alcohol and drug use. 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 Surgical History H/O thyroidectomy Social History Social History Alcohol intake: never Advance Directives: No Advance Directives Information Provided: Yes Physical Exam Vital Signs: Vital Signs: Last Vital Signs Temp 97.5 F 01/16/22 05:57 Pulse 49 L 01/16/22 05:57 Resp 16 01/16/22 05:57 BP 123/74 01/16/22 05:57 Pulse Ox 100 01/16/22 05:57 O2 Del Method 01/16/22 05:57 BMI result Body Mass Index 33.5 Const: General: cooperative and no acute distress Orientation/consciousness: oriented to person and oriented to place Limitations: no limitations HEENT: Head: Yes normal to inspection, Yes normocephalic and Yes atraumatic Ears: external ears normal General nose exam: Normal external nose present Face and sinus: Yes normal facial exam Mouth: Normal oral and palatal mucosa present Throat: Yes posterior oropharynx normal Eyes: General: appearance normal, both eyes and all related structures Pupils: Equal, round and reactive pupils present Neck: Neck: Yes normal visual inspection, Yes no lymphadenopathy, Yes trachea midline and Yes supple Chest: Chest palpation & inspection: normal inspection of the chest and normal palpation of entire chest wall Resp: Effort & Inspection: normal respiratory effort and able to speak in complete sentences Auscultation: clear to auscultation bilaterally Cardio: Rate: bradycardic Rhythm: regular rhythm Heart sounds: S1 normal heart sound present, S2 normal heart sound present and no murmurs GI: Inspection: Yes normal to inspection Palpation (GI): Soft to palpation, Tenderness to palpation present (GI) in the epigastrum and no guarding Auscultation: normal bowel sounds : General: Yes no CVA tenderness Back/Spine/Pelvis: Back: no CVA tenderness Skin: General skin exam: no rashes or lesions noted Neuro: General: oriented to person and oriented to place Cranial nerves: Yes CN's II-XII intact bilaterally and Yes Equal, round and reactive pupils present Cognition (Neuro): normal cognition Motor exam (neuro): 5/5 motor strength present throughout Extrem: General: Yes normal to inspection Psych: Appearance: grossly normal Speech and movement: Normal speech and movement present Affect: normal affect Attitude: cooperative Thought process: Normal thought process present Thought content: Normal thought content present Course Course Course Narrative: 26-year-old male who presents emergency department for evaluation of fatigue, weakness x1 week with throat /chest/epigastric x1 day. The patient ran out of his levothyroxine approximately 1 week prior and has been noncompliant with his medication, he has also been noncompliant with his omeprazole. Patient's vital signs revealed bradycardia otherwise were unremarkable. The patient's examin ation did reveal epigastric tenderness. The patient's weakness and fatigue is secondary to noncompliant with his levothyroxine causing him to be hypothyroid. I did discuss this with him and the patient states that he will tack picker his medication today and restart the medication. The patient throat chest and abdominal pain is consistent with GERD. He is advised to continue taking his omeprazole. Given his symptoms I do not think that he can return to work he was given a work note for 3 days. The patient will be discharged home with printed and verbal instructions. MDM - Chest Pain Lab Data Result diagrams: 01/16/22 06:23 06/19/22 06:23 Labs: Lab Results 01/16/22 01/16/22 01/16/22 Range/Units 06:23 06:23 06:23 WBC 9.6 (4.8-10.8) X10*3/uL RBC 4.58 L (4.60-5.80) X10*6/uL Hgb 14.3 (14.0-18.0) g/dl Hct 43.9 (42.0-52.0) % MCV 95.9 (80.0-98.0) fL MCH 31.2 (27.0-33.0) pg MCHC 32.6 (31.0-36.0) g/dl RDW 13.8 (11.0-16.0) % Plt Count 261 (160-400) X10*3/uL MPV 10.2 (9.4-12.4) fL Immature Gran % (Auto) 0.3 (0.0-0.4) % Neut % (Auto) 66.4 (45-73) % Lymph % (Auto) 23.6 (20-40) % [place] % (Auto) 7.9 (2-11) % Eos % (Auto) 0.9 (0-4) % Baso % (Auto) 0.9 (0-2) % Lymph # (Auto) 2.3 (1.2-4.9) X10*3/uL [place] # (Auto) 0.8 (0.1-1.2) X10*3/uL Eos # (Auto) 0.1 (0.0-0.4) X10*3/uL Baso # (Auto) 0.1 (0.0-0.2) X10*3/uL Abs Immat Gran (auto) 0.03 (0.00-0.03) X10*3/uL Absolute Neuts (auto) 6.4 (2.0-8.3) x10*3/uL Absolute Nucleated RBC 0.000 (0.0-0.012) X10*3/uL Nucleated RBC % (auto) 0.0 (0.0-0.2) /100WBC Sodium 136 (135-145) mmol/L Potassium 4.6 (3.3-5.1) mmol/L Chloride 104 (96-108) mmol/L Carbon Dioxide 23 (22-29) mmol/L Anion Gap 14 (12-20) BUN 16 (9-16) mg/dL Creatinine 0.90 (0.5-1.4) mg/dL Estim Creat Clear Calc 156.0 Estimated GFR > 60 Random Glucose 86 (60-115) mg/dL Calcium 9.3 (8.4-10.2) mg/dL Troponin I High Sens < 3.5 (<3.5-35.0) ng/L ECG Data ECG #1: Attestation: I personally reviewed and interpreted this ECG as follows: Interpretation: 0600: Sinus bradycardia with a rate of 36, no ST segment elevation, no ST segment depression, no PACs, no PVCs, no T-wave abnormalities except for the bradycardia this is a normal EKG Discharge Plan Discharge Clinical Impression: Chest pain Qualifiers: Chest pain type: unspecified Qualified Code(s): R07.9 - Chest pain, unspecified GERD with esophagitis Qualifiers: Esophagitis bleeding: without hemorrhage Qualified Code(s): K21.00 - Gastro- esophageal reflux disease with esophagitis, without bleeding Hypothyroidism Qualifiers: Hypothyroidism type: postoperative Qualified Code(s): E89.0 - Postprocedural hypothyroidism Patient Disposition: Home, Self-Care Instructions: Gastroesophageal Reflux Disease (ED) Additional Instructions: Your symptoms are caused by heartburn and by you not taking your thyroid medication. Your thyroid medication make sure heart beat faster and also gives you energy, without this medication urinary feel very weak and tired. Your heartburn may also be related to not taking your thyroid medication or related to not taking your omeprazole. Get your thyroid medication filled today and start taking this medication. Continue taking your omeprazole (Prilosec). Follow-up with your doctor in 2 days. Please return to the emergency department if your symptoms get worse or if you develop any symptoms that are concerning to you. Please see the work note. Prescriptions: No Action levothyroxine 150 mcg Tablet 150 mcg PO DAILY levothyroxine 150 mcg tablet 150 mcg PO DAILY 30 Days Qty: 30 0RF olopatadine 0.1 % drops 1 drp ophthalmic (eye) BID 7 Days Qty: 5 0RF Rx Instructions: separate doses by at least 6-8 hours albuterol sulfate 90 mcg/actuation HFA aerosol inhaler 1 inh inhalation QID PRN (Reason: shortness of breath or wheezing) Qty: 8.5 0RF loratadine [Claritin] 10 mg tablet 10 mg PO BID PRN (Reason: allergies) Qty: 30 0RF fluticasone propionate [Flonase Allergy Relief] 50 mcg/actuation spray,s uspension 1 spray intranasal BID Qty: 16 0RF Rx Instructions: administer into each nostril codeine-guaifenesin 8-200 mg/5 mL liquid 5 ml PO Q6H PRN (Reason: cough) Qty: 100 0RF Rx Instructions: Patient can partially fill prescription upon request azithromycin 250 mg tablet See Rx Instructions PO .COMPLEX Qty: 6 0RF Rx Instructions: For 250 mg dose pack: take 500 mg today (day 1), then 250 mg for 4 days (days 2-5) benzonatate 100 mg capsule 100 mg PO TID PRN (Reason: cough) Qty: 20 0RF Stand Alone Forms: Work/School Release
== END 2022-01-16 07:23 | disposition home or self-care (01) ==
PROVIDERS: Emergency Provider Emergency Medicine Emergency Medical Services
DX: R07.89 Other chest pain (principal); K21.00 Gastro-esophageal reflux disease with esophagitis, without bleeding; E89.0 Postprocedural hypothyroidism; R06.02 Shortness of breath; R10.13 Epigastric pain; Z79.899 Other long term (current) drug therapy
CPT/HCPCS: 36415; 80048; 84484; 85025; 93005; 99282; 99283

== ENCOUNTER 2022-03-21 08:38 | Emergency (ER) | payer MEDICAID, SELFPAY ==
--- NOTE | ~2022-03-21 | XR_ITS ---
EXAMINATION: XR HAND, LEFT CLINICAL INFORMATION: Fall, pain. COMPARISON: Left hand 04/09/2015 TECHNIQUE: PA, lateral, and oblique views of the left hand. FINDINGS: The bones and soft tissues are normal. No fracture. Alignment is anatomic. Joint spaces are maintained. No erosions or soft tissue calcifications. XR/XR hand LT min 3V IMPRESSION: Unremarkable left hand exam. No major change compared to previous study 04/09/2015.
[2022-03-21 08:47] VITALS: BP 109/75; PULSE 65; RESP 14; TEMP 36.1; O2SAT 98; BMI 30.1
--- NOTE | 2022-03-21 11:13 | ED.EXTPRO ---
HPI - Extremity Problem General Chief complaint: Extremity Injury, Upper Stated complaint: L hand inj Time Seen by Provider: 03/21/22 10:29 Source: patient Mode of arrival: ambulatory Limitations: no limitations History of Present Illness HPI Narrative: Patient presents emergency department for evaluation of left hand pain after mechanical fall. He is left-hand dominant. He states that he fell on the stairs striking his left hand against a metal part on the stair, did not fall onto an outstretched hand. He is having pain at the base of the left 5th digit. He states that it feels heavy. Denies any numbness or tingling. Has full range of motion to the digits, hand, and wrist. Related Data Home Medications Medication Instructions Recorded Confirmed levothyroxine 150 mcg tablet 150 mcg PO DAILY 12/05/20 12/05/20 Previous Rx's Medication Instructions Recorded levothyroxine 150 mcg tablet 150 mcg PO DAILY 30 days #30 tabs 12/05/20 olopatadine 0.1 % eye drops 1 drp ophthalmic (eye) BID 7 days 12/05/20 #5 mL albuterol sulfate 90 mcg/actuation 1 inh inhalation QID PRN shortness 04/03/21 aerosol inhaler of breath or wheezing #8.5 grams fluticasone propionate 50 1 spray intranasal BID Sinus 04/03/21 mcg/actuation nasal congestion #16 grams spray,suspension (Flonase Allergy Relief) loratadine 10 mg tablet (Claritin) 10 mg PO BID PRN allergies #30 tabs 04/03/21 azithromycin 250 mg tablet See Rx Instructions PO .COMPLEX #6 07/11/21 tabs codeine 8 mg-guaifenesin 200 mg/5 5 ml PO Q6H PRN cough #100 mL 07/11/21 mL oral liquid benzonatate 100 mg capsule 100 mg PO TID PRN cough #20 caps 08/29/21 Allergies Allergy/AdvReac Type Severity Reaction Status Date / Time No Known Allergies Allergy Verified 01/16/22 06:01 [No Known Allergies*] Review of Systems Review of Systems: Musculoskeletal: Positive hand pain Yes all other systems are reviewed and are negative PMFSH Past Medical History Attestation statement: The following information was validated with the patient. Source: old records reviewed Surgical History H/O thyroidectomy Social History Social History Alcohol intake: never Advance Directives: No Advance Directives Information Provided: No Physical Exam Vital Signs: Vital Signs: Last Vital Signs Temp 97 F 03/21/22 08:47 Pulse 65 03/21/22 08:47 Resp 14 03/21/22 08:47 BP 109/75 03/21/22 08:47 Pulse Ox 98 03/21/22 08:47 O2 Del Method 03/21/22 08:47 BMI result Body Mass Index 30.1 Vital signs have been reviewed as normal and appeared to be correct. Blood pressure normal.? Heart rate normal.? Respiration rate normal. Temperature normal.? Oxygen saturation normal. Appearance: Alert.?Oriented to person, place and time. No acute distress.?Normal affect.? Neck: Normal inspection.? Neck supple.?? CVS: Heart sounds normal. Normal heart rate and rhythm.? Pulses normal.?? Respiratory: No respiratory distress.? Lung sounds clear to auscultation bilaterally?? Abdomen: Soft and non-tender. Skin: Skin warm and dry.? Normal skin color.? Extremities: No lower extremity edema.? Full AROM to left hand and wrist Neuro: Moves all extremities spontaneously. Sensation intact bilaterally. No motor deficits Ambulates with normal steady gait. Course Course Course Narrative: Patient is a 26-year-old male who presents to the emergency department for evaluation of left hand pain after mechanical fall. XR reveals no acute fracture or dislocation. Neurovascularly intact distally. Advised pain most likely secondary to contusion, advised ice, elevation, compression, and ibuprofen. Discussed worrisome signs and symptoms return back to emergency department for. Outpatient follow-up with primary care provider as needed. Patient provided with return to work note. All questions were answered, patient was discharged home in stable condition. MDM - Extremity (Nontraumatic) Medical Records Attestation: I reviewed the patient's medical records. Imaging Data XR hand: Radiologist's impression: FINDINGS: The bones and soft tissues are normal. No fracture. Alignment is anatomic. Joint spaces are maintained. No erosions or soft tissue calcifications.? XR/XR hand LT min 3V IMPRESSION: Unremarkable left hand exam. No major change compared to previous study 04/09/2015. Discharge Plan Discharge Clinical Impression: Contusion of hand Patient Disposition: Home, Self-Care Instructions: Contusion in Adults (ED) Additional Instructions: Be sure to rest the hand, apply ice for up to 15 minutes a few times daily, You can take ibuprofen 200 mg, 3 tablets (600mg) every 6-8 hours as needed for pain, in addition to Tylenol 500 mg, 2 tablets (1,000mg) every 4-6 hours as needed for pain, but not to exceed 3 doses daily (3,000mg).? Return to the emergency department any new or worsening symptoms or concerns Prescriptions: No Action levothyroxine 150 mcg Tablet 150 mcg PO DAILY levothyroxine 150 mcg tablet 150 mcg PO DAILY 30 Days Qty: 30 0RF olopatadine 0.1 % drops 1 drp ophthalmic (eye) BID 7 Days Qty: 5 0RF Rx Instructions: separate doses by at least 6-8 hours albuterol sulfate 90 mcg/actuation HFA aerosol inhaler 1 inh inhalation QID PRN (Reason: shortness of breath or wheezing) Qty: 8.5 0RF loratadine [Claritin] 10 mg tablet 10 mg PO BID PRN (Reason: allergies) Qty: 30 0RF fluticasone propionate [Flonase Allergy Relief] 50 mcg/actuation spray,suspension 1 spray intranasal BID Qty: 16 0RF Rx Instructions: administer into each nostril codeine-guaifenesin 8-200 mg/5 mL liquid 5 ml PO Q6H PRN (Reason: cough) Qty: 100 0RF Rx Instructions: Patient can partially fill prescription upon request azithromycin 250 mg tablet See Rx Instructions PO .COMPLEX Qty: 6 0RF Rx Instructions: For 250 mg dose pack: take 500 mg today (day 1), then 250 mg for 4 days (days 2-5) benzonatate 100 mg capsule 100 mg PO TID PRN (Reason: cough) Qty: 20 0RF Stand Alone Forms: Work/School Release
== END 2022-03-21 11:43 | disposition home or self-care (01) ==
PROVIDERS: Emergency Provider Emergency Medicine
DX: S60.222A Contusion of left hand, initial encounter (principal); W17.89XA Other fall from one level to another, initial encounter; Y93.89 Activity, other specified; Y92.9 Unspecified place or not applicable; Y99.9 Unspecified external cause status
CPT/HCPCS: 73130; 99283

== ENCOUNTER 2022-05-08 08:34 | Emergency (ER) | payer MEDICAID, SELFPAY ==
[2022-05-08 08:46] VITALS: BP 114/63; PULSE 52; RESP 20; TEMP 36.5; O2SAT 100; BMI 29.7
[2022-05-08 09:35] LABS: COVID-19 Test Negative (Negative); IDNOW Serial# 55D5AD1C
[2022-05-08 10:00] VITALS: BP 117/68; PULSE 46; RESP 14; TEMP 36.7; O2SAT 99
--- NOTE | 2022-05-08 10:11 | ED_ITS ---
HPI - URI/Sore Throat General Chief Complaint: Upper Respiratory Symptoms Stated Complaint: Cough/SOB/Congestion Time Seen by Provider: 05/08/22 09:39 Source: patient Mode of arrival: ambulatory Limitations: no limitations History of Present Illness HPI Narrative: The patient is a 26 year old male with PMH of childhood Asthma, GERD, a history of bradycardia and s/p thyroidectomy presenting today for 2 days of productive cough, chills, congestion and burning sensation in his chest. Patient endorses SOB, difficulty breathing, and mild headache. He states that he is unable to breath out of his nose, and awoke this morning with shortness of breath, due to congestion. The patient denies fever. 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 MD elicited complaint: cough, nasal congestion and sinus pain Pertinent past history: asthma (childhood ) Onset (ago): day(s) (2) Consistency: constant Severity: moderate Description of mucous: other (brown) Able to tolerate fluids by mouth: Yes Relieving factors: nothing Context: sick contacts (girlfriend ) Associated symptoms: chills, headache, nasal congestion, cough and chest pain (burning sensation) Treatments prior to arrival: cold medicine (dayquil yesterday ) Related Data Home Medications Medication Instructions Recorded Confirmed levothyroxine 150 mcg tablet 150 mcg PO DAILY 12/05/20 12/05/20 Previous Rx's Medication Instructions Recorded levothyroxine 150 mcg tablet 150 mcg PO DAILY 30 days #30 tabs 12/05/20 olopatadine 0.1 % eye drops 1 drp ophthalmic (eye) BID 7 days 12/05/20 #5 mL albuterol sulfate 90 mcg/actuation 1 inh inhalation QID PRN shortness 04/03/21 aerosol inhaler of breath or wheezing #8.5 grams fluticasone propionate 50 1 spray intranasal BID Sinus 04/03/21 mcg/actuation nasal congestion #16 grams spray,suspension (Flonase Allergy Relief) loratadine 10 mg tablet (Claritin) 10 mg PO BID PRN allergies #30 tabs 04/03/21 azithromycin 250 mg tablet See Rx Instructions PO .COMPLEX #6 07/11/21 tabs codeine 8 mg-guaifenesin 200 mg/5 5 ml PO Q6H PRN cough #100 mL 07/11/21 mL oral liquid benzonatate 100 mg capsule 100 mg PO TID PRN cough #20 caps 08/29/21 albuterol sulfate 90 mcg/actuation 2 puff inhalation Q4-6H PRN 05/08/22 aerosol inhaler shortness of breath or wheezing #6.7 grams guaifenesin 600 mg tablet, 1,200 mg PO Q12H PRN congestion 05/08/22 extended release 12 hr #14 tabs Allergies Allergy/AdvReac Type Severity Reaction Status Date / Time No Known Allergies Allergy Verified 01/16/22 06:01 [No Known Allergies*] Review of Systems Review of Systems: Constitutional: No fever. Positive chills. No weakness. Positive fatigue. ENT/ Mouth: No Ear Pain, positive Nasal Congestion, positive sore throat, No Rhinorrhea, No Swallowing Difficulty Skin: No rash or itching. Cardiovascular: No chest pain. No palpitations. Positive chest burning Respiratory: Positive shortness of breath. Positive cough. Positive brown sputum production. Gastrointestinal: No nausea. No vomiting. No diarrhea. No abdominal pain. Genitourinary: No burning micturition. No urinary frequency. Neurologic: Positive headache. No dizziness. No syncope. No numbness or tingling in the extremities. Musculoskeletal: No muscle pain. No back pain. No joint pain or stiffness. Yes all other systems are reviewed and are negative [facility] Past Medical History Surgical History H/O thyroidectomy Social History Social History Alcohol intake: never Advance Directives: No Advance Directives Information Provided: No Physical Exam Vital Signs: Vital Signs: Last Vital Signs Temp 98.1 F 05/08/22 10:00 Pulse 46 L 05/08/22 10:00 Resp 14 05/08/22 10:00 BP 117/68 05/08/22 10:00 Pulse Ox 99 05/08/22 10:00 O2 Del Method 05/08/22 10:00 BMI result Body Mass Index 29.7 Vital signs have been reviewed as normal and appeared to be correct. Blood pressure normal.? Heart rate normal.? Respiration rate normal. Temperature normal.? Oxygen saturation normal. Appearance: Alert.?Oriented to person, place and time. No acute distress.?Normal affect. Eyes: Pupils equal, round and reactive to light.? ENT: Pharynx normal.?? Neck: Normal inspection.? Neck supple.??No cervical adenopathy CVS: Heart sounds normal. Normal heart rate and rhythm.? Pulses normal.?? Respiratory: No respiratory distress. Mild wheezing noted bilaterally in the lower lung mcdonald,? Lung sounds otherwise clear to auscultation bilaterally. Abdomen: Soft and non-tender. Skin: Skin warm and dry.? Normal skin color.? ? Extremities: No lower extremity edema.? Neuro: Moves all extremities spontaneously. Sensation intact bilaterally. No motor deficits. Ambulates with normal steady gait. Course Course Course Narrative: 10:30 -The patient is a 26 year old male with PMH of childhood Asthma, GERD, a history of bradycardia and s/p thyroidectomy presenting today for 2 days of productive cough, chills, congestion and burning sensation in his chest. Exam remarkable for bilateral lower lobe wheezing. CXR showed no signs of cardiovascular or pulmonary pathology. Patient was noted to be bradycardic at 46bpm, patient is asymptomatic. - Patient is s/p thyroidectomy approximately 10 years ago Reporting thyrotropin over active almost becoming cancerous and recently re-started taking his levothyroxine a few months ago, and had his dosage increased about 1 month ago. EKG will be ordered to rule out any cardiac arrhythmias due to patien t's bradycardia. Patient states his heart rate is normally in the 60s. -Patient has a PMH significant for childhood asthma, the patients chest burning sensation is unlikely due to ACS - due to the patient's age, low risk factors and presentation lab work is not indicated at this time. -PE is also unlikely due to history and presentation, patient has a PERC score of 0, no workup is indicated at this time. Plan: - EKG - Discharge home with a albuterol inhalator with instructions to take OTC mediation for symptomatic treatment (guaifenesin, Dayquil,& Nighquil), rest and hydrate. Reevaluation(s) Reevaluation #1: Review of patient's EKG at this time which reveals a marked sinus bradycardia with heart rate of 41. Patient is asymptomatic, without dizziness, lightheadedness, near syncope, syncopal episodes, palpitations, shortness of breath, difficulty breathing, numbness or tingling of his extremities. Discusse terri with patient this is likely secondary to his hypothyroidism. Patient had an EKG in December of 2021, at that time he was either not taking his levothyroxine for a few months or head just began taking it again at that time. He has an appointment with his primary care provider in a couple of weeks to recheck his thyroid levels since his dosage was increased 4-6 weeks ago. Time: 11:18 MDM - URI/Sore Throat Medical Records Attestation: I reviewed the patient's medical records. Lab Data Attestation: I reviewed the patient's lab results. Labs: Lab Results 05/08/22 Range/Units 08:52 COVID-19 ([facility]INDER) Negative (Negative) COVID-19 Clin Com See Note Imaging Data Chest x-ray: Radiologist's impression: XR/XR chest 2V IMPRESSION: No acute cardiopulmonary findings. ECG Data Attestation: I personally reviewed and interpreted this ECG as follows: ECG interpretation date: 05/08/22 Interpretation: Rate: 41 Rhythm:? sinus bradycardia [place]:? normal Normal P waves.? Normal [place].?? Normal QRS complex.?? ST T wave :?? no ST elevation, no ST depression, no T-wave inversion qTC: 328 prior studies:? December 2021 The study has been interpreted contemporaneously by me. Discharge Plan Discharge Clinical Impression: Bronchitis Patient Disposition: Home, Self-Care Instructions: Acute Bronchitis (ED) Additional Instructions: Be sure to rest, stay well hydrated drinking plenty of fluids, eat small frequent meals. Tylenol/ibuprofen can be used as needed for fever/pain. Domn-bws-mhhjviz cold medications may be helpful as well for symptoms; day-quil, Nyquil. Saline nasal spray, humidifier may be helpful for nasal congestion. you have been given a new prescription for an albuterol inhaler to use every 4- 6 hours as needed for wheezing or shortness of breath. In addition, please take Mucinex twice daily to help manage secretions. You may return to the emergency department with any new or worsening symptoms or concerns. Follow-up with your primary care provider, as we discussed your heart rate was low today, this may be related to your thyroid levels, given your recent dosage change he should speak with your doctor regarding repeat thyroid levels. Prescriptions: New albuterol sulfate 90 mcg/actuation HFA aerosol inhaler 2 puff inhalation Q4-6H PRN (Reason: shortness of breath or wheezing) Qty: 6.7 0RF guaifenesin 600 mg tablet extended release 12hr 1,200 mg PO Q12H PRN (Reason: congestion) Qty: 14 0RF No Action levothyroxine 150 mcg Tablet 150 mcg PO DAILY levothyroxine 150 mcg tablet 150 mcg PO DAILY 30 Days Qty: 30 0RF olopatadine 0.1 % drops 1 drp ophthalmic (eye) BID 7 Days Qty: 5 0RF Rx Instructions: separate doses by at least 6-8 hours albuterol sulfate 90 mcg/actuation HFA aerosol inhaler 1 inh inhalation QID PRN (Reason: shortness of breath or wheezing) Qty: 8.5 0RF loratadine [Claritin] 10 mg tablet 10 mg PO BID PRN (Reason: allergies) Qty: 30 0RF fluticasone propionate [Flonase Allergy Relief] 50 mcg/actuation spray,suspension 1 spray intranasal BID Qty: 16 0RF Rx Instructions: administer into each nostril codeine-guaifenesin 8-200 mg/5 mL liquid 5 ml PO Q6H PRN (Reason: cough) Qty: 100 0RF Rx Instructions: Patient can partially fill prescription upon request azithromycin 250 mg tablet See Rx Instructions PO .COMPLEX Qty: 6 0RF Rx Instructions: For 250 mg dose pack: take 500 mg today (day 1), then 250 mg for 4 days (days 2-5) benzonatate 100 mg capsule 100 mg PO TID PRN (Reason: cough) Qty: 20 0RF Stand Alone Forms: Work/School Release Interventions: ED Discharge Assessment Last Done: 05/08/22 11:39 Discharge Date/Time: 05/08/22 11:42
--- NOTE | 2022-05-08 10:45 | ECG_ITS ---
Test Reason : BRADYCARDIA Blood Pressure : / mmHG Vent. Rate : 041 BPM Atrial Rate : 041 BPM P-R Int : 176 ms QRS Dur : 094 ms QT Int : 398 ms P-R-T Axes : 069 070 054 degrees QTc Int : 328 ms Marked sinus bradycardia Abnormal ECG When compared with ECG of No significant changes seen Referred By: Vangie Armando Electronically Signed By:DAVID NUNEZ MD
== END 2022-05-08 11:42 | disposition home or self-care (01) ==
PROVIDERS: Emergency Provider Emergency Medicine
DX: J40 Bronchitis, not specified as acute or chronic (principal); R05.9 Cough, unspecified; R07.89 Other chest pain; Z20.822 Contact with and (suspected) exposure to COVID-19; Z79.899 Other long term (current) drug therapy
CPT/HCPCS: 71046; 87635; 93005; 99284

== ENCOUNTER 2022-05-20 14:16 | Emergency (ER) | payer MEDICAID, SELFPAY ==
[2022-05-20 14:18] VITALS: BP 131/72; PULSE 68; RESP 18; TEMP 37.2; BMI 29.7
== END 2022-05-20 17:07 | disposition left against medical advice (07) ==
PROVIDERS: Emergency Provider Emergency Medicine
DX: Z04.1 Encounter for examination and observation following transport accident (principal)
CPT/HCPCS: 99281

== ENCOUNTER 2023-04-10 08:21 | Emergency (ER) | payer MEDICAID, SELFPAY ==
[2023-04-10 08:22] VITALS: BP 122/63; PULSE 64; RESP 18; TEMP 36.8; O2SAT 99
== END 2023-04-10 09:51 | disposition left against medical advice (07) ==
PROVIDERS: Emergency Provider Emergency Medicine
DX: M25.511 Pain in right shoulder (principal)
CPT/HCPCS: 99281

== ENCOUNTER 2023-06-12 13:07 | Emergency (ER) | payer SELFPAY ==
--- NOTE | ~2023-06-12 | XR_ITS ---
EXAMINATION: XR HAND, RIGHT CLINICAL INFORMATION: Pain, injury Patient states right pinky pain after fall downstairs COMPARISON: None available. TECHNIQUE: PA, lateral, and oblique views of the right hand. FINDINGS: The bones are intact. No fracture. Alignment is anatomic. Joint spaces are maintained. No erosions or soft tissue calcifications. XR/XR hand RT min 3V IMPRESSION: No bony abnormality.
--- NOTE | 2023-06-12 13:10 | ED_ITS ---
HPI - General Adult General Chief complaint: Extremity Injury, Upper Stated complaint: R hand pinky inj Time Seen by Provider: 06/12/23 14:24 Source: patient Mode of arrival: ambulatory Limitations: no limitations History of Present Illness HPI narrative: Patient is a 27 year old assigned male at with no reported medical history presenting to the emergency department today with right 5th finger pain. Patient states that earlier today he tripped and fell, bending his right 5th finger back on the rail of this staircase. Patient denies any head strike, loss of consciousness, dizziness, lightheadedness, abdominal pain, nausea, vomiting, fever, chills, blurry vision, double vision, loss of vision, chest pain, difficulty breathing, shortness of breath, back pain, night sweats, pain with urination, increased urinary frequency, increased urinary urgency, blood in his urine or stool, syncope or a near syncopal episode, bowel incontinence, bladder incontinence, bowel retention, bladder retention, or any other complaints at this time. Onset (ago): minute(s) Location: right and upper extremity Radiation: non-radiation Severity: mild Severity scale (1-10): 3 Quality: aching and dull Pain Consistency: constant Relieving factors: none Exacerbating factors: none Associated symptoms: denies other symptoms Treatments prior to arrival: none Related Data Home Medications Medication Instructions Recorded Confirmed levothyroxine 150 mcg tablet 150 mcg PO DAILY 12/05/20 12/05/20 Previous Rx's Medication Instructions Recorded levothyroxine 150 mcg tablet 150 mcg PO DAILY 30 days #30 tabs 12/05/20 olopatadine 0.1 % eye drops 1 drp ophthalmic (eye) BID 7 days 12/05/20 #5 mL albuterol sulfate 90 mcg/actuation 1 inh inhalation QID PRN shortness 04/03/21 aerosol inhaler of breath or wheezing #8.5 grams fluticasone propionate 50 1 spray intranasal BID Sinus 04/03/21 mcg/actuation nasal congestion #16 grams spray,suspension (Flonase Allergy Relief) loratadine 10 mg tablet (Claritin) 10 mg PO BID PRN allergies #30 tabs 04/03/21 azithromycin 250 mg tablet See Rx Instructions PO .COMPLEX #6 07/11/21 tabs codeine 8 mg-guaifenesin 200 mg/5 5 ml PO Q6H PRN cough #100 mL 07/11/21 mL oral liquid benzonatate 100 mg capsule 100 mg PO TID PRN cough #20 caps 08/29/21 albuterol sulfate 90 mcg/actuation 2 puff inhalation Q4-6H PRN 05/08/22 aerosol inhaler shortness of breath or wheezing #6.7 grams guaifenesin 600 mg tablet, 1,200 mg (2 x 600 mg) PO Q12H PRN 05/08/22 extended release 12 hr congestion #14 tabs Allergies Allergy/AdvReac Type Severity Reaction Status Date / Time No Known Allergies Allergy Verified 01/16/22 06:01 [No Known Allergies*] Review of Systems Constitutional: Constitutional: Reports no additional constitutional complaints, Denies chills, Denies fever(s) and Denies night sweats Eyes: Eyes: Reports no additional eye complaints, Denies blurry vision, Denies change in vision, Denies diplopia, Denies eye discharge, Denies loss of vision and Denies eye pain ENT: Denies dizziness Cardiovascular: Cardiovascular: Reports no additional cardiovascular complaints, Denies chest pain, Denies lightheadedness, Denies Loss of Consciousness and Denies dyspnea Respiratory: Respiratory: Reports no additional respiratory complaints and Denies dyspnea Gastrointestinal: Gastrointestinal: Reports no additional gastrointestinal complaints, Denies abdominal pain, Denies melena, Denies hematochezia, Denies change in bowel habits and Denies change in stool character Genitourinary: Genitourinary: Reports no additional male genitourinary complaints, Denies hematuria, Denies oliguria, Denies difficulty urinating, Denies dysuria, Denies urinary frequency, Denies urinary hesitancy, Denies urinary incontinence and Denies urinary urgency Musculoskeletal: Musculoskeletal: Reports no additional musculoskeletal complaints, Denies numbness and Denies tingling Comments: right 5th finger pain Neurologic: Denies dizziness, Denies loss of vision, Denies numbness and Denies tingling Psychiatric: Psychiatric: Reports no additional psychiatric complaints Endocrine: Endocrine: Reports no additional endocrine complaints Hematologic/Lymphatic: Hematologic/Lymphatic: Reports no additional hematologic/lymphatic complaints Allergic/Immunologic: Allergic/Immunologic: Reports no additional allergic/immunologic complaints PMFSH Past Medical History Attestation statement: The following information was validated with the patient. Source: old records reviewed and nursing notes reviewed Surgical History H/O thyroidectomy Social History Social History Alcohol intake: never Advance Directives: No Physical Exam ED Vital Signs: Vital Signs - 24 hr 06/12/23 13:11 Temperature 98.0 F Pulse Rate 68 Respiratory Rate 18 Blood Pressure 167/88 H Pulse Oximetry 100 Oxygen Delivery Method Room Air BMI result Body Mass Index 30.7 Const General: cooperative, no acute distress, alert and awake Nutritional Appearance: well nourished Orientation/consciousness: patient oriented x3 Limitations: no limitations HENMT Head: Yes normal to inspection and Yes atraumatic Ears: hearing grossly normal bilaterally and external ears normal General nose exam: Normal external nose present, no nasal discharge noted and no epistaxis Face and sinus: Yes normal facial exam, No abrasion and No laceration Mouth: Normal oral and palatal mucosa present, no drooling and no muffled voice Eyes General: appearance normal, both eyes and all related structures Periorbital: periorbital findings normal Eyelids: Yes eyelids normal Conjunctivae: conjunctivae normal Pupils: Equal, round and reactive pupils present EOM: EOMs intact bilaterally Neck Neck: Yes normal visual inspection, Yes full ROM and Yes no lymphadenopathy Chest Chest palpation & inspection: normal inspection of the chest Resp Effort & Inspection: normal respiratory effort and able to speak in complete sentences GI Inspection: Yes normal to inspection Neuro General: patient oriented x3 and moves all extremities Cranial nerves: Yes Equal, round and reactive pupils present Cognition (Neuro): normal cognition Motor exam (neuro): 5/5 motor strength present throughout Sensory Exam: Normal double simultaneous stimulation for sensation Coordination: [id number] test normal Extrem General: Yes normal to inspection, Yes full ROM and Yes capillary refill normal Psych Appearance: grossly normal Mental Status: mental status grossly normal Affect: normal affect Attitude: cooperative Thought process: Normal thought process present Thought content: Normal thought content present Insight: Good insight present (Psych) Course Course Course Narrative: RME performed by Roslyn Lopez PA-C. Patient is a 27 year old assigned male at presenting to the emergency department with right 5th finger pain. Imaging ordered. Patient placed back in the waiting room pending room av ailability and results. Medical Decision Making Medical Decision Making MDM Narrative: Patient is a 27 year old assigned male at with no reported medical history presenting to the emergency department today with right 5th finger pain. Patient's physical exam was unremarkable. Patient's right hand x-ray showed no acute process. Patient left without completing treatment. Patient left the department before myself or any of the other emergency department clinicians could review/explain physical exam findings, test results, need or lack thereof for further testing, treatment options, or treatment plan. Differential Diagnosis Differential Diagnoses: The differential diagnosis associated with the presentation includes Right hand injury Right 5th finger sprain Right 5th finger strain Right 5th finger fracture Independent Interpretation I performed an independent interpretation of an: Plain X-Ray Interpretation: My interpretation is in agreement with the radiologist's impression of this imaging study. EXAMINATION: XR HAND, RIGHT CLINICAL INFORMATION: Pain, injury Patient states right pinky pain after fall downstairs COMPARISON: None available. TECHNIQUE: PA, lateral, and oblique views of the right hand. FINDINGS: The bones are intact. No fracture. Alignment is anatomic. Joint spaces are maintained. No erosions or soft tissue calcifications. XR/XR hand RT min 3V IMPRESSION: No bony abnormality. Dictated By: Ban Holt MD Signed By: Electronically signed by Ban Holt MD 06/12/23 1507 Radiology Impression Discussion of test interpretation with radiology: I have reviewed the radiologist's reading. Discharge Plan Discharge Clinical Impression: Finger sprain Patient Disposition: Left W/O Completing Treatment Prescriptions: No Action levothyroxine 150 mcg Tablet 150 mcg PO DAILY levothyroxine 150 mcg tablet 150 mcg PO DAILY 30 Days Qty: 30 0RF olopatadine 0.1 % drops 1 drp ophthalmic (eye) BID 7 Days Qty: 5 0RF Rx Instructions: separate doses by at least 6-8 hours albuterol sulfate 90 mcg/actuation HFA aerosol inhaler 1 inh inhalation QID PRN (Reason: shortness of breath or wheezing) Qty: 8.5 0RF loratadine [Claritin] 10 mg tablet 10 mg PO BID PRN (Reason: allergies) Qty: 30 0RF fluticasone propionate [Flonase Allergy Relief] 50 mcg/actuation spray,suspension 1 spray intranasal BID Qty: 16 0RF Rx Instructions: administer into each nostril codeine-guaifenesin 8-200 mg/5 mL liquid 5 ml PO Q6H PRN (Reason: cough) Qty: 100 0RF Rx Instructions: Patient can partially fill prescription upon request azithromycin 250 mg tablet See Rx Instructions PO .COMPLEX Qty: 6 0RF Rx Instructions: For 250 mg dose pack: take 500 mg today (day 1), then 250 mg for 4 days (days 2-5) benzonatate 100 mg capsule 100 mg PO TID PRN (Reason: cough) Qty: 20 0RF albuterol sulfate 90 mcg/actuation HFA aerosol inhaler 2 puff inhalation Q4-6H PRN (Reason: shortness of breath or wheezing) Qty: 6.7 0RF guaifenesin 600 mg tablet extended release 12hr 1,200 mg PO Q12H PRN (Reason: congestion) Qty: 14 0RF Discharge Date/Time: 06/12/23 14:57
[2023-06-12 13:11] VITALS: BP 167/88; PULSE 68; RESP 18; TEMP 36.7; O2SAT 100; BMI 30.7
== END 2023-06-12 14:57 | disposition left against medical advice (07) ==
PROVIDERS: Emergency Provider Emergency Medicine
DX: S63.616A Unspecified sprain of right little finger, initial encounter (principal); W10.9XXA Fall (on) (from) unspecified stairs and steps, initial encounter; Y93.9 Activity, unspecified; Y92.9 Unspecified place or not applicable; M79.644 Pain in right finger(s)
CPT/HCPCS: 73130; 99281; 99283

== ENCOUNTER 2025-04-28 09:36 | Emergency (ER) | payer MEDICAID, SELFPAY ==
--- NOTE | ~2025-04-28 | XR_ITS ---
EXAMINATION: XR WRIST NAVICULAR LEFT, XR HAND 3 OR MORE VIEWS LEFT HISTORY: dresser fell on top of wrist COMPARISON: Comparison is made with the prior examination of the left hand dated 03/21/2022. FINDINGS: Seven views of the left hand and wrist, including a scaphoid view are submitted. Osseous mineralization is normal. There is no fracture or dislocation. The joint spaces are preserved. The soft tissues are unremarkable. XR/XR hand LT min 3V IMPRESSION: Unremarkable examination of the left hand and wrist. Electronically signed by: Luiz Barba MD 04/28/2025 10:28 AM EDT
--- NOTE | ~2025-04-28 | XR_ITS ---
EXAMINATION: XR WRIST NAVICULAR LEFT, XR HAND 3 OR MORE VIEWS LEFT HISTORY: dresser fell on top of wrist COMPARISON: Comparison is made with the prior examination of the left hand dated 03/21/2022. FINDINGS: Seven views of the left hand and wrist, including a scaphoid view are submitted. Osseous mineralization is normal. There is no fracture or dislocation. The joint spaces are preserved. The soft tissues are unremarkable. XR/XR wrist LT w scaphoid IMPRESSION: Unremarkable examination of the left hand and wrist. Electronically signed by: Luiz Barba MD 04/28/2025 10:28 AM EDT
[2025-04-28 09:58] VITALS: BP 120/64; PULSE 54; RESP 15; TEMP 36.3; O2SAT 99; BMI 31.1
--- NOTE | 2025-04-28 10:07 | ED.GENADULT ---
HPI - General Adult General Chief complaint: Extremity Injury, Upper Stated complaint: fall down stairs, hand injury Time Seen by Provider: 04/28/25 09:56 Source: patient, RN notes reviewed and old records reviewed Mode of arrival: ambulatory Limitations: no limitations History of Present Illness ED Provider: UBALDO Rudolph HPI narrative: 29-year-old male with medical history of asthma presents to the ED due to 1 day of left wrist/hand pain. Patient states he was moving furniture yesterday walking down the stairs when a dresser slipped and fell on top of his left wrist. Reports immediate pain of the wrist and over the L knuckles. Patient states he woke up this morning with increased pain in the L hand and pain when moving the wrist in a rotational movement. Has not taken anything for pain relief. MD complaint: L hand/wrist pain Related Data Home Medications ?Medication ?Instructions ?Recorded ?Confirmed levothyroxine 150 mcg tablet 150 mcg PO DAILY 12/05/20 12/05/20 Previous Rx's ?Medication ?Instructions ?Recorded levothyroxine 150 mcg tablet 150 mcg PO DAILY 30 days #30 tabs 12/05/20 olopatadine 0.1 % eye drops 1 drp ophthalmic (eye) BID 7 days 12/05/20 #5 mL albuterol sulfate 90 mcg/actuation 1 inh inhalation QID PRN shortness 04/03/21 aerosol inhaler of breath or wheezing #8.5 grams fluticasone propionate 50 1 spray intranasal BID Sinus 04/03/21 mcg/actuation nasal congestion #16 grams spray,suspension (Flonase Allergy Relief) loratadine 10 mg tablet (Claritin) 10 mg PO BID PRN allergies #30 tabs 04/03/21 azithromycin 250 mg tablet See Rx Instructions PO .COMPLEX #6 07/11/21 tabs codeine 8 mg-guaifenesin 200 mg/5 5 ml PO Q6H PRN cough #100 mL 07/11/21 mL oral liquid benzonatate 100 mg capsule 100 mg PO TID PRN cough #20 caps 08/29/21 albuterol sulfate 90 mcg/actuation 2 puff inhalation Q4-6H PRN 05/08/22 aerosol inhaler shortness of breath or wheezing #6.7 grams guaifenesin 600 mg tablet, 1,200 mg (2 x 600 mg) PO Q12H PRN 05/08/22 extended release 12 hr congestion #14 tabs Allergies Allergy/AdvReac Type Severity Reaction Status Date / Time No Known Allergies (No Known Allergy Verified 04/28/25 10:21 Allergies*) FOR[facility]LY [facility] Past Medical History Surgical History H/O thyroidectomy Social History Social History Alcohol intake: never Smoked in Last 30 Days: No Use of substances other than those prescribed or required for medical reasons: No Advance Directives: No Advance Directives Information Provided: No Physical Exam ED Vital Signs: Vital Signs - 24 hr 04/28/25 09:58 04/28/25 10:22 Temperature 97.3 F 97.3 F Pulse Rate 54 54 Respiratory Rate 15 15 Blood Pressure 120/64 120/64 Pulse Oximetry 99 99 Oxygen Delivery Method Room Air Room Air BMI result Body Mass Index 31.1 GENERAL APPEARANCE: ?AxOx4, generally well-appearing, no acute distress. HEENT: ?NC, AT. MMM. EOMI, clear conjunctiva, oropharynx clear. NECK: ?Supple without lymphadenopathy.? No stiffness or restricted ROM. HEART:? Normal rate and regular rhythm, normal S1/S2, no m/r/g LUNGS:? CTAB, moving air well. No crackles or wheezes are heard. EXTREMITIES: ?Without cyanosis, clubbing or edema. L hand with TTP over MCP's, distal ulnar and radial aspects, radial pulses 2+, appropriate capillary refill time, SILT, ROM intact, opposition intact, compartments soft, no bony abnormalities palpated or observed NEUROLOGICAL: ?Grossly nonfocal. Alert and oriented, moving all 4 extremities. Observed to ambulate with normal gait. Skin: ?Warm and dry without any rash. Course Reevaluation(s) Reevaluation #1: XR L hand and wrist negative for fracture or dislocation. Patient was medicated with 30 mg IM Toradol, 975 p.o. Tylenol which has managed pain. Time: 11:23 Medications Administered Discontinued Medications Generic Name Dose Route Start Last Admin Trade Name Freq PRN Reason Stop Dose Admin Acetaminophen 975 mg 04/28/25 10:07 04/28/25 10:31 Acetaminophen 325 Mg Tablet PO 04/28/25 10:08 975 mg ONCE ONE Administration Ketorolac Tromethamine 30 mg 04/28/25 10:07 04/28/25 10:31 Ketorolac Tromethamine 30 Mg/Ml Vial IM 04/28/25 10:08 30 mg ONCE ONE Administration Medical Decision Making Medical Decision Making [facility] Narrative: 29-year-old male with medical history of asthma presents to the ED due to 1 day of left wrist/hand pain while moving furniture and dresser falling on top of L hand and wrist. Woke up this morning with increased pain of L wrist when moving in a rotational movement. Has not taken any Tylenol/ibuprofen for analgesia. On physical exam, L hand with TTP over MCP's, distal ulnar and radial aspects, radial pulses 2+, appropriate capillary refill time, SILT, ROM intact, opposition intact, compartments soft, no bony abnormalities palpated or observed Plan: XR L hand and wrist, medicate with IM 30mg Toradol, 975mg PO Tylenol XR L hand and wrist negative for fracture or dislocation. Patient was medicated with 30 mg Toradol, 975 p.o. Tylenol which has mild effect of pain. ROM intact, compartments soft, radial pulses 2+. Patient will be given wrist splint for protection. I counseled patient to manage pain with 500 mg Tylenol, 400 mg ibuprofen. I encouraged patient to follow up with his primary care doctor. I counseled patient on strict return precautions. Patient is in agreement with the plan. Differential Diagnosis Differential Diagnoses: The differential diagnosis associated with the presentation includes Compartment syndrome Hand fracture Wrist fracture Hand strain Restrain Admission/Observation Consideration of admission/observation: Escalation of care including admission/observation considered Independent Interpretation I performed an independent interpretation of an: Plain X-Ray Interpretation: I independently interpreted the XR L hand which was negative for fracture or dislocation, I agree with the radiologist's interpretation I independently interpreted the XR L wrist which was negative for fracture or dislocation, I agree with the radiologist's interpretation Radiology Impression Discussion of test interpretation with radiology: I have reviewed the radiologist's reading. Radiologist Impression: XR L hand FINDINGS: Seven views of the left hand and wrist, including a scaphoid view are submitted. Osseous mineralization is normal. There is no fracture or dislocation. The joint spaces are preserved. The soft tissues are unremarkable. XR/XR hand LT min 3V IMPRESSION: Unremarkable examination of the left hand and wrist. Electronically signed by: Luiz Barba MD 04/28/2025 10:28 AM EDT RP Dictated By: Luiz Barba MD Signed By: <Electronically signed by Luiz Barba MD in OV> 04/28/25 1028 XR L wrist FINDINGS: Seven views of the left hand and wrist, including a scaphoid view are submitted. Osseous mineralization is normal. There is no fracture or dislocation. The joint spaces are preserved. The soft tissues are unremarkable. XR/XR wrist LT w scaphoid IMPRESSION: Unremarkable examination of the left hand and wrist. Electronically signed by: Luiz Barba MD 04/28/2025 10:28 AM EDT RP Dictated By: Luiz Barba MD Signed By: <Electronically signed by Luiz Barba MD in OV> 04/28/25 1028 External Record Review External record reviewed: Inpatient record, Office record and Outpatient record Chronic Conditions Patient?s care impacted by: Other (Asthma) Discharge Plan Discharge Clinical Impression: Sprain and strain of wrist Patient Disposition: Home, Self-Care Instructions: Wrist Sprain (ED), Cold Compress or Soak (ED) Additional Instructions: You were evaluated in the ED today due to left hand and wrist pain. Your x-rays today were negative for fracture or dislocation. You can manage pain at home by alternating 500 mg of Tylenol, 400 mg of ibuprofen every 6 hours. You can leave the wrist in a velcro splint for stability while the wrist is healing. Additionally you can ice, elevate to manage swelling at home. Please return to the emergency department if you experiencing worsening pain of the left hand and wrist, decreased sensation, inability to move the hand or wrist, increased swelling in the hand or wrist or any new/worsening/concerning symptoms. Prescriptions: No Action levothyroxine 150 mcg Tablet 150 mcg PO DAILY levothyroxine 150 mcg tablet 150 mcg PO DAILY 30 Days Qty: 30 0RF olopatadine 0.1 % drops 1 drp ophthalmic (eye) BID 7 Days Qty: 5 0RF Rx Instructions: separate doses by at least 6-8 hours albuterol sulfate 90 mcg/actuation HFA aerosol inhaler 1 inh inhalation QID PRN (Reason: shortness of breath or wheezing) Qty: 8.5 0RF loratadine [Claritin] 10 mg tablet 10 mg PO BID PRN (Reason: allergies) Qty: 30 0RF fluticasone propionate [Flonase Allergy Relief] 50 mcg/actuation spray,suspension 1 spray intranasal BID Qty: 16 0RF Rx Instructions: administer into each nostril codeine-guaifenesin 8-200 mg/5 mL liquid 5 ml PO Q6H PRN (Reason: cough) Qty: 100 0RF Rx Instructions: Patient can partially fill prescription upon request azithromycin 250 mg tablet See Rx Instructions PO .COMPLEX Qty: 6 0RF Rx Instructions: For 250 mg dose pack: take 500 mg today (day 1), then 250 mg for 4 days (days 2-5) benzonatate 100 mg capsule 100 mg PO TID PRN (Reason: cough) Qty: 20 0RF albuterol sulfate 90 mcg/actuation HFA aerosol inhaler 2 puff inhalation Q4-6H PRN (Reason: shortness of breath or wheezing) Qty: 6.7 0RF guaifenesin 600 mg tablet extended release 12hr 1,200 mg PO Q12H PRN (Reason: congestion) Qty: 14 0RF Print Language: [place] Citizen
[2025-04-28 10:22] VITALS: BP 120/64; PULSE 54; RESP 15; TEMP 36.3; O2SAT 99
--- OUTSIDE RECORDS SUMMARY | 2025-04-28 11:37 | XMS_ITS | Encounter Summary ---
Author Organization [employer] Address [address] [place] [address] Care Team Providers Care Nurse Examiner Name Role Phone Name, Jaiden BUSTILLO Primary Care Provider [phone] Encounter Details Date Type Department Care Team (Late st Contact Info) Description 04/28/2025 Orders Only [facility] External Provider, [facility] Social History Tobacco Use Types Packs/Day Years Used Date Smoking Tobacco: Never Smokeless Tobacco: Never Sex and Gender Information Value Date Recorded Sex Assigned at Male 05/30/2022 10:22 AM EDT Legal Sex Male 10:22 AM EDT Gender Identity Male 05/30/2022 10:22 AM EDT Sexual Orientation Straight 05/30/2022 10 :22 AM EDT documented as of this encounter Plan of Treatment Not on file documented as of this encounter Procedures Procedure Name Priority Date/Time Associated Diagnosis Comments XR HAND 3+ VIEWS LEFT Routine 04/28/2025 10:18 AM EDT XR WRIST LT W SCAPHOID Routine 04/28/2025 10:10 AM EDT documented in this encounter Results * XR Hand 3+ Views Left (04/28/2025 10:18 AM EDT) Anatomical Region Laterality Modality Upper Extremities, Hand Left Radiogra phic Imaging 04/28/2025 10:1 8 AM EDT Narrative 04/28/2025 10:31 AM EDT [address] [address] XRay Report Signed Patient: Mathew Gallegos MR#: [id number] : 1995 Acct:[id number] Age/Sex: 29 / M ADM Date: 04/28/25 Loc: HO.ED Attending Dr: Ordering Physician: Mikey Rudolph PA-C Date of Service: 04/28/25 Procedure(s): XR hand LT min 3V Accession Number(s): [id number] cc: Mikey Rudolph PA-C; Jaiden Belcher MD Reason for Exam: dresser fell ontop of hand EXAMINATION: XR WRIST NAVICULAR LEFT, XR HAND 3 OR MORE VIEWS LEFT HISTORY: dresser fell on top of wrist COMPARISON: Comparison is made with the prior examination of the left hand dated 03/21/2022. FINDINGS: Seven views of the left hand and wrist, including a scaphoid view are submitted. Osseous mineralization is normal. There is no fracture or dislocation. The joint spaces are preserved. The soft tissues are unremarkable. XR/XR hand LT min 3V IMPRESSION: Unremarkable examination of the left hand and wrist. Electronically signed by: Luiz Barba MD 04/28/2025 10:28 AM EDT RP Dictated By: Luiz Barba MD Signed By: <Electronically signed by Luiz Barba MD in OV> 04/28/25 1028 DD/ 1018 TD/TT: 04/28/25 1015 [employer] Developer: Procedure Note Donotuseinterpreter, Image - 04/28/[address] [address] XRay Report Signed Patient: Mathew GallegosMR#: [id number] : 1995Acct:[id number] Age/Sex: 29 / MADM Date: 04/28/25 Loc: .ED Attending Dr: Ordering Physician: Mikey Rudolph PA-C Date of Service: 04/28/25 Procedure(s): XR hand LT min 3V Accession Number(s): [id number] cc: Mikey Rudolph PA-C; Jaiden Belcher MD Reason for Exam: dresser fell ontop of hand EXAMINATION: XR WRIST NAVICULAR LEFT, XR HAND 3 OR MORE VIEWS LEFT HISTORY: dresser fell on top of wrist COMPARISON: Comparison is made with the prior examination of the left hand dated 03/21/2022. FINDINGS: Seven views of the left hand and wrist, including a scaphoid view are submitted. Osseous mineralization is normal. There is no fracture or dislocation. The joint spaces are preserved. The soft tissues are unremarkable. XR/XR hand LT min 3V IMPRESSION: Unremarkable examination of the left hand and wrist. Electronically signed by: Luiz Barba MD 04/28/2025 10:28 AM EDT RP Dictated By: Luiz Barba MD Signed By: <Electronically signed by Luiz Barba MD in OV> 04/28/25 1028 DD/ 1018 TD/TT: 04/28/25 1015 Talend Developer: [facility] External Provider IMG XR PROCEDURES Edited Result - Final * XR WRIST LT W SCAPHOID (04/28/2025 10:10 AM EDT) Anatomical Region Laterality Modality Upper Extremities, Wrist Left Radiogr aphic Imaging 04/28/2025 10:1 0 AM EDT Narrative 04/28/2025 10:31 AM EDT [place] [address] XRay Report Signed Patient: Mathew Gallegos MR#: [id number] : 1995 Acct:[id number] Age/Sex: 29 / M ADM Date: 04/28/25 Loc: .ED Attending Dr: Ordering Physician: Mikey Rudolph PA-C Date of Service: 04/28/25 Procedure(s): XR wrist LT w scaphoid Accession Number(s): [id number] cc: Mikey Rudolph PA-C; Jaiden Belcher MD Reason for Exam: dresser fell ontop of wrist EXAMINATION: XR WRIST NAVICULAR LEFT, XR HAND 3 OR MORE VIEWS LEFT HISTORY: dresser fell on top of wrist COMPARISON: Comparison is made with the prior examination of the left hand dated 03/21/2022. FINDINGS: Seven views of the left hand and wrist, including a scaphoid view are submitted. Osseous mineralization is normal. There is no fracture or dislocation. The joint spaces are preserved. The soft tissues are unremarkable. XR/XR wrist LT w scaphoid IMPRESSION: Unremarkable examination of the left hand and wrist. Electronically signed by: Luiz Barba MD 04/28/2025 10:28 AM EDT RP Dictated By: Luiz Barba MD Signed By: <Electronically signed by Luiz Barba MD in OV> 04/28/25 1028 DD/ 1010 TD/TT: 04/28/25 1015 Talend Developer: Procedure Note Donotuseinterpreter, Image - 04/28/2025 [place] [address] XRay Report Signed Patient: Mathew GallegosMR#: [id number] : 1995Acct:[id number] Age/Sex: Date: 04/28/25 Loc: HO.ED Attending Dr: Ordering Physician: Mikey Rudolph PA-C Date of Service: 04/28/25 Procedure(s): XR wrist LT w scaphoid Accession Number(s): [id number] cc: Mikey Rudolph PA-C; Name,Jaiden BUSTILLO Reason for Exam: dresser fell ontop of wrist EXAMINATION: XR WRIST NAVICULAR LEFT, XR HAND 3 OR MORE VIEWS LEFT HISTORY: dresser fell on top of wrist COMPARISON: Comparison is made with the prior examination of the left hand dated 03/21/2022. FINDINGS: Seven views of the left hand and wrist, including a scaphoid view are submitted. Osseous mineralization is normal. There is no fracture or dislocation. The joint spaces are preserved. The soft tissues are unremarkable. XR/XR wrist LT w scaphoid IMPRESSION: Unremarkable examination of the left hand and wrist. Electronically signed by: Luiz Barba MD 04/28/2025 10:28 AM EDT RP Dictated By: Luiz Barba MD Signed By: <Electronically signed by Luiz Barba MD in OV> 04/28/25 1028 DD/ 1010 TD/TT: 04/28/25 1015 Talend Developer: [facility] External Provider IMG XR PROCEDURES Edited Result - Final documented in this encounter Visit Diagnoses Not on filedocumented in this encounter Care Teams Nurse Examiner Relationship Specialty Start Date End Date Name, MD [address]iden [address] [place] [address] PCP - General Family Medicine 03/10/22 documented as of this encounter
--- OUTSIDE RECORDS SUMMARY | 2025-04-28 11:37 | XMS_ITS | Encounter Summary ---
Author Organization [facility] Address [address] [place] [phone] Phone Care Team Providers Care Juvenile Officer Name Role Phone Unavailable Primary Care Provider Unavailabl e Encounter Details Date Type Department Care Team (Late st Contact Info) Description 02/03/2011 Documentation [facility] Family Medicine [address] [place] [address] Family Medicine, Physician [facility] [place] [address] Social History Tobacco Use Types Packs/Day Years Used Date Smoking Tobacco: Never Assessed Sex and Gender Information Value Date Recorded Sex Assigned at Not on file Legal Sex Male 4:36 PM EDT Gender Identity Not on file Sexual Orientation Not on file documented as of this encounter Plan of Treatment Not on file documented as of this encounter Visit Diagnoses Not on filedocumented in this encounter
--- OUTSIDE RECORDS SUMMARY | 2025-04-28 11:37 | XMS_ITS | Clinical Summary ---
Author Organization [email or web address] Address [address] [facility] [address] [place] [address] Care Team Providers Care Orthodontic Lab Technician Name Role Phone Name, Jaiden BUSTILLO Primary Care Provider [phone] Allergies No known active allergies Medications omeprazole (PriLOSEC) [address] capsuleIndicati ons:Gastroesoph ageal reflux disease, unspecified whether esophagitis present Take 1 capsule (20 mg) by mouth 2 times daily. 60 capsule 1 06/12/20 24 Active famotidine (Pepcid) 20 MG tabletIndicatio ns:Gastroesopha geal reflux disease, unspecified whether esophagitis present TAKE 1 TABLET BY MOUTH TWICE A DAY 180 tablet 02/11/20 25 Active acetaminophen (Tylenol) 500 MG tablet Take 2 tablets (1,000 mg) by mouth every 6 (six) hours if needed for moderate pain or fever for up to 25 doses. 50 tablet 03/03/20 25 Active ibuprofen 400 MG tablet Take 1 tablet (400 mg) by mouth every 6 (six) hours if needed for moderate pain or fever for up to 30 doses. 30 tablet 03/03/20 25 Active Spacer/Aero-Hol ding Chambers (OptiChamber Anila) misc 1 each every 4 (four) hours if needed (asthma). 1 each 03/03/20 25 Active Ventolin HFA 108 (90 Base) MCG/ACT inhaler Inhale 2 puffs every 4 (four) hours if needed for wheezing. 18 g 1 03/03/20 25 Active pseudoephedrine (Sudafed) 30 MG tablet Take 1 tablet (30 mg) by mouth every 4 (four) hours if needed for congestion for up to 10 days. 30 tablet 03/05/20 25 Active levothyroxine (Synthroid, Levoxyl) 200 MCG tablet TAKE 1 TABLET BY MOUTH EVERY DAY 90 tablet 04/28/20 25 Active levothyroxine (Synthroid, Levoxyl) 200 MCG tablet TAKE 1 TABLET BY MOUTH EVERY DAY 90 tablet 02/11/20 25 025 Discontinued Active Problems Problem Noted Date Diagnosed Date Costochondritis 02/10/2025 EDWARD (obstructive sleep apnea) 07/02/2024 Noncompliance with treatment 01/29/2024 Sore throat 01/29/2024 Suspected COVID-19 virus infection 01/29/2024 Acquired hypothyroidism 10/14/2016 History of thyroidectomy 12/04/2012 Proteinuria 06/06/2011 Encounters Date Type Department Care Team Description 04/28/2025 Orders Only [facility] External Provider, [facility] 04/27/2025 Refill [facility] [address] [address] Name, MD Jaiden 03/27/[address] [address] Philomena Cruz [place] CHARTPREP 03/05/2025 6:40 PM EDT [facility] [address] [address] Anoop Pena MD Viral upper respiratory tract infection (Primary Dx); Influenza-like symptoms 03/05/2025 Travel 03/03/2025 10:40 AM EDT [facility] [address] [address] Alban Phan MD Influenza-like symptoms (Primary Dx) 03/03/2025 Travel 02/24/[address] [address] Jaycob Salinas [place] Appointment Request 02/10/2025 7:40 PM EDT [facility] [address] [address] Anoop Pena MD Costochondritis (Primary Dx) 02/10/2025 Travel 02/10/2025 Telephone [place] [address] [place] [address] Name, MD Jaiden Appointment Request 02/08/2025 Refill [facility] [address] [place] [address] NameJaiden MD Gastroesophageal reflux disease, unspecified whether esophagitis present 02/03/2025 Telephone [facility] [address] [place] [address] Philomena Cruz [place] CHARTPREP from Last 3 Months Immunizations Immunization Administration Dates Next Due DTP 05/30/1996,03/30/1996,01/28/1996 DTaP 05/29/2007, 6,03/30/1996,01/27 DTaP, 5 pertussis antigens 01/11/2000,03/30/1997 HPV, Quadrivalent 10/19/2012,11/25/2011,09/05/19 12 Hep B, Adolescent or Pediatric 10/28/1996,1995,1995 Hib (HbOC) 01/27/1997, 6,03/30/1996,01/27 IPV 01/11/2000, 6,03/30/1996,01/27 Influenza, IIV3, injectable 07/09/2009, 8 Influenza, Split (incl. charis fied surface antigen) 07/29/2010 MMR 01/11/2000,01/27/1997 Meningococcal MCV4P ACYW-135 10/19/2012,05/29/20 07 Meningococcal MPSV4 05/29/2007 Novel [id number]-[id number], all formulations 07/09/2009 Tdap 03/26/2020,05/29/2007 Social History Tobacco Use Types Packs/Day Years Used Date Smoking Tobacco: Never Smokeless Tobacco: Never Tobacco Cessation:Counseling Given: Not Answered Sex and Gender Information Value Date Recorded Sex Assigned at Male 05/30/2022 10:22 AM EDT Legal Sex Male 10:22 AM EDT Gender Identity Male 05/30/2022 10:22 AM EDT Sexual Orientation Straight 05/30/2022 10 :22 AM EDT Last Filed Vital Signs Vital Sign Reading Time Taken Comments Blood Pressure 110/68 03/05/2025 6:28 PM EDT Pulse 60 03/05/2025 6:28 PM EDT Temperature 36.7 C (98 F) 03/05/2025 6:28 PM EDT Respiratory Rate 18 03/05/2025 6:28 PM EDT Oxygen Saturation 99% 03/05/2025 6:28 PM EDT Inhaled Oxygen Concentration - - Weight 103 kg (226 lb 9.6 oz) 03/05/2025 6:28 PM EDT Height 180.3 cm (5' 11 ) 03/05/2025 6:28 PM EDT Body Mass Index 31.6 03/05/2025 6:28 PM EDT Plan of Treatment Health Maintenance Due Date Last Done Comments Dental Oral Exam 1995 Dental Prophylaxis 1995 Dental X-Ray: Bitewings 1995 Depression Screening 1995 HIV Screening 1995 SDOH Screening 1995 Disability Screening 1995 Alcohol/Substance Use Screening 2007 Family Planning (PISQ) 11/08/2010 Hepatitis C Screening 11/08/2013 COVID-19 Vaccine ( season) 2025 04/11/2021, 03/19/2021 Influenza Vaccine (#1) 2025 0, 07/09/2009, 07/09/2009, Additional history exists Tobacco Screening 03/03/2026 03/03/2025 Dental X-Ray: Full Mouth 10/13/2026 10/13/2023 DTaP/Tdap/Td Vaccines (9 - Td or Tdap) 03/26/2030 03/26/2020, 05/29/2007, 05/29/2007, Additional history exists Zoster Vaccines (1 of 2) 11/08/2045 RSV Patients and Patients Aged 60 years or older (1 - 1-dose 75+ series) 11/08/2070 Hepatitis B Vaccines Completed 10/28/1996, 01/28/1996, 1995, Additional history exists HIB Vaccines Completed 01/27/1997, 05/02, 03/30/1996, Additional history exists IPV Vaccines Completed 01/11/2000, 05/02, 03/30/1996, Additional history exists HPV Vaccines Completed 10/19/2012, 10/30, 09/05/2011 Meningococcal Vaccine Completed 10/19/2012 , 05/29/2007, 05/29/2007 Hepatitis A Vaccines Aged Out No long er eligible based on patient's age to complete this topic Meningococcal B Vaccine Aged Out No l onger eligible based on patient's age to complete this topic Pneumococcal Vaccine: Pediatrics (0 to 5 Years) and At-Risk Patients (6 to 49) Years Aged Out No longer eligible based on patient's age to complete this topic RSV under 20 months Aged Out No longe r eligible based on patient's age to complete this topic Rotavirus Vaccines Aged Out No longer eligible based on patient's age to complete this topic Procedures Procedure Name Priority Date/Time Associated Diagnosis Comments XR HAND 3+ VIEWS LEFT Routine 04/28/2025 10:18 AM EDT XR WRIST LT W SCAPHOID Routine 04/28/2025 10:10 AM EDT POCT RAPID COVID ANTIGEN Routine 03/05/2025 6:41 PM EDT Influenza-like symptoms POCT INFLUENZA A (ID NOW RAPID MOLECULAR) Routine 03/05/2025 6:41 PM EDT Influenza-like symptoms POCT INFLUENZA B (ID NOW RAPID MOLECULAR) Routine 03/05/2025 6:41 PM EDT Influenza-like symptoms POCT RAPID STREP A Routine 03/03/2025 11 :14 AM EDT Influenza-like symptoms POCT RAPID COVID ANTIGEN Routine 03/03/2025 11:14 AM EDT Influenza-like symptoms POCT INFLUENZA A (ID NOW RAPID MOLECULAR) Routine 03/03/2025 11:14 AM EDT Influenza-like symptoms POCT INFLUENZA B (ID NOW RAPID MOLECULAR) Routine 03/03/2025 11:14 AM EDT Influenza-like symptoms PANORAMIC RADIOGRAPHIC IMAGE Routine 10/13/2023 8:30 AM EDT Dental abscess Acute pericoronitis from Last 3 Months or Most Recently Relevant to Health Maintenance Results * XR Hand 3+ Views Left (04/28/2025 10:18 AM EDT) Anatomical Region Laterality Modality Upper Extremities, Hand Left Radiogra phic Imaging 04/28/2025 10:1 8 AM EDT Narrative 04/28/2025 10:31 AM EDT [address] [address] XRay Report Signed Patient: Mathew Gallegos MR#: [id number] : 1995 Acct:[id number] Age/Sex: 29 / M ADM Date: 04/28/25 Loc: .ED Attending Dr: Ordering Physician: Mikey Rudolph PA-C Date of Service: 04/28/25 Procedure(s): XR hand LT min 3V Accession Number(s): [id number] cc: Mikey Rudolph PA-C; Name,Jaiden BUSITLLO Reason for Exam: dresser fell ontop of [...] Luiz Barba MD 04/28/2025 10:28 AM EDT Dictated By: Luiz Barba MD Signed By: <Electronically signed by Luiz Barba MD in OV> 04/28/25 1028 DD/ 1018 TD/TT: 04/28/25 1015 Occasional Caregiver: Procedure Note Donotuseinterpreter, Image - 04/28/[address] [place] [address] XRay Report Signed Patient: Mathew GallegosMR#: [id number] : 1995Acct:[id number] Age/Sex: 29 MADM Date: 04/28/25 Loc: HO.ED Attending Dr: Ordering Physician: Mikey Rudolph PA-C Date of Service: 04/28/25 Procedure(s): XR hand LT min 3V Accession Number(s): [id number] cc: Mikey Rudolph PA-C; Name,Jaiden BUSTILLO Reason [...] Luiz Barba MD 04/28/2025 10:28 AM EDT Dictated By: Luiz Barba MD Signed By: <Electronically signed by Luiz Barba MD in OV> 04/28/25 1028 DD/ 1018 TD/TT: 04/28/25 1015 Occasional Caregiver: us [facility] External Provider IMG XR PROCEDURES Edited Result - Final * XR WRIST LT W SCAPHOID (04/28/2025 10:10 AM EDT) Anatomical Region Laterality Modality Upper Extremities, Wrist Left Radiogr aphic Imaging 04/28/2025 10:1 0 AM EDT Narrative 04/28/2025 10:31 AM EDT [address] [address] XRay Report Signed Patient: Mathew Gallegos MR#: [id number] : 1995 Acct:[id number] Age/Sex: 29 / M ADM Date: 04/28/25 Loc: HO.ED Attending Dr: Ordering Physician: Mikey Rudolph PA-C Date of Service: 04/28/25 Procedure(s): XR wrist LT w scaphoid Accession Number(s): [id number] cc: Mikey Rudolph PA-C; Name,Jaiden BUSTILLO Reason [...] 04/28/25 1028 DD/ 1010 TD/TT: 04/28/25 1015 Occasional Caregiver: Procedure Note Donotuseinterpreter, Image - 04/28/2025 [place] [address] XRay Report Signed Patient: Mathew GallegosMR#: [id number] : 1995Acct:[id number] Age/Sex: 29 / MADM Date: 04/28/25 Loc: HO.ED Attending Dr: Ordering Physician: Mikey Rudolph PA-C Date of Service: 04/28/25 Procedure(s): XR wrist LT w scaphoid Accession Number(s): [id number] cc: Mikey Rudolph PA-C; Name,Jaiden BUSTILLO Reason [...] 04/28/25 1028 DD/ 1010 TD/TT: 04/28/25 1015 Occasional Caregiver: [facility] External Provider IMG XR PROCEDURES Edited Result - Final * POCT Rapid Influenza B CALDERON ID NOW (03/05/2025 6:41 PM EDT) Only the most recent of2 resultswithin the time period is included. Influenza B Negative Negative, Indeterminate [facility] Swab 03/05/2025 6:41 PM EDT Anoop Tompkins MD POINT OF CARE TEST ENTER/EDIT ORDERABLES Final Result Performing Organization Address City/[facility] Co de Phone Number [facility] [address] [place] [phone] * POCT Rapid Influenza A CALDERON ID NOW (03/05/2025 6:41 PM EDT) Only the most recent of2 resultswithin the time period is included. Influenza A Negative Negative, Indeterminate [facility] Swab 03/05/2025 6:41 PM EDT Anoop Tompkins MD POINT OF CARE TEST ENTER/EDIT ORDERABLES Final Result Performing Organization Address City/[facility]/ZIP Co de Phone Number [facility] [address] [place] [address] [phone] * POCT Rapid COVID-19 Binax NOW (03/05/2025 6:41 PM EDT) Only the most recent of2 resultswithin the time period is included. Rapid COVID Ag Negative Swab 03/05/2025 6:41 PM EDT Anoop Tompkins MD POINT OF CARE TEST ENTER/EDIT ORDERABLES Final Result * POCT rapid strep A manually resulted (03/03/2025 11:14 AM EDT) Rapid Strep A Screen Negative Negative, None Detected Swab 03/03/2025 11:1 4 AM EDT Alban Phan MD POINT OF CARE TEST ENTER/EDIT OR DERABLES Final Result from Last 3 Months Insurance [facility] C3 DENTAL - HSN PARTIAL (MEDICAID) Care Teams Orthodontic Lab Technician Relationship Specialty Start Date End Date Name, MD Jaiden [address] [place] [address] PCP - General Family Medicine 03/10/22
--- OUTSIDE RECORDS SUMMARY | 2025-04-28 11:37 | XMS_ITS | Encounter Summary ---
Author Organization [facility] Address [address] [place] [phone] Phone Care Team Providers Care Automobile Service Station Manager Name Role Phone Unavailable Primary Care Provider Unavailabl e Encounter Details Date Type Department Care Team (Late st Contact Info) Description 05/04/2011 Documentation [facility] [place] [facility] [address] [place] [address] Family Medicine, Physician [address] [place] [address] Social History Tobacco Use Types [...]
--- OUTSIDE RECORDS SUMMARY | 2025-04-28 11:37 | XMS_ITS | Encounter Summary ---
Author Organization [employer] Address [address] [facility] 7t [place] [address] Care Team Providers Care Exchange Clerk Name Role Phone Name, Jaiden BUSTILLO Primary Care Provider [phone] Reason for Visit * Reason Comments Med Refill Encounter Details Date Type Department Care Team ([facility] st Contact Info) Description 04/27/2025 Refill [facility] [address] [place] [address] Name, MD Jaiden [address] [place] [address] Social History Tobacco Use Types Packs/Day Years [...] on filedocumented in this encounter Care Teams Exchange Clerk Relationship Specialty Start Date End Date Name, MD Jaiden [address] [place] [address] PCP - General Family Medicine 03/10/22 documented as of this encounter
--- OUTSIDE RECORDS SUMMARY | 2025-04-28 11:37 | XMS_ITS | Encounter Summary ---
Author Organization [employer] Address [address] [facility] 7t [place] [address] Care Team Providers Care Cover Creaser Name Role Phone Name, Jaiden BUSTILLO Primary Care Provider [phone] Encounter Details Date Type Department Care Team (Late st Contact Info) Description 05/29/2023 Orders Only [facility] [address] [place], [place] [phone] Jennifer Lincoln LPN Social History Tobacco Use Types Packs/Day Years [...] Associated Diagnosis Comments XR HAND 3+ VIEWS RIGHT Routine 06/12/2023 1:30 PM EST documented in this encounter Results * XR Hand 3+ Views Right (06/12/2023 1:30 PM EST) Anatomical Region Laterality Modality Upper Extremities, Hand Right Radiogra phic Imaging 06/12/2023 1:30 PM EST Narrative 06/12/2023 3:11 PM EST [address] [address] XRay Report Signed Patient: Mathew Gallegos MR#: [id number] : 1995 Acct:[id number] Age/Sex: 27 / M ADM Date: 06/12/23 Loc: HO.ED Attending Dr: Ordering Physician: Roslyn Lopez Date of Service: 06/12/23 Procedure(s): XR hand RT min 3V Accession Number(s): [id number] cc: Roslyn Lopez; [facility] EXAMINATION: XR HAND, RIGHT CLINICAL INFORMATION: Pain, injury Patient states right pinky pain after fall downstairs COMPARISON: None available. TECHNIQUE: PA, lateral, and oblique views of the right hand. FINDINGS: The bones are intact. No fracture. Alignment is anatomic. Joint spaces are maintained. No erosions or soft tissue calcifications. XR/XR hand RT min 3V IMPRESSION: No bony abnormality. Dictated By: Ban Holt MD Signed By: <Electronically signed by Ban Holt MD in OV> 06/12/23 1508 DD/ 1330 TD/TT: Riveter Helper: Procedure Note Donotuseinterpreter, Image - 06/12/2023 [place] [address] XRay Report Signed Patient: Mathew GallegosMR#: [id number] : 1995Acct:[id number] Age/Sex: 27 / MADM Date: 06/12/23 Loc: HO.ED Attending Dr: Ordering Physician: Roslyn Lopez Date of Service: 06/12/23 Procedure(s): XR hand RT min 3V Accession Number(s): [id number] cc: Roslyn Lopez; [facility] EXAMINATION: XR HAND, RIGHT CLINICAL INFORMATION: Pain, injury Patient states right pinky pain after fall downstairs COMPARISON: None available. TECHNIQUE: PA, lateral, and oblique views of the right hand. FINDINGS: The bones are intact. No fracture. Alignment is anatomic. Joint spaces are maintained. No erosions or soft tissue calcifications. XR/XR hand RT min 3V IMPRESSION: No bony abnormality. Dictated By: Ban Holt MD Signed By: <Electronically signed by Ban Holt MD in OV> 06/12/23 1508 DD/ 1330 TD/TT: Riveter Helper: [facility] External Provider IMG XR PROCEDURES Final Result documented in this encounter Visit Diagnoses Not on filedocumented in this encounter Care Teams Cover Creaser Relationship Specialty Start Date End Date Name, MD Jaiden [address] [place] [address] PCP - General Family Medicine 03/10/22 documented as of this encounter
--- OUTSIDE RECORDS SUMMARY | 2025-04-28 11:37 | XMS_ITS | Encounter Summary ---
Author Organization [employer] Address [address] [facility] 7t [place] [address] Care Team Providers Care Elementary Vocal Music Teacher Name Role Phone Name, Jaiden BUSTILLO Primary Care Provider [phone] Reason for Visit * Reason Comments Med Change Request Encounter Details Date Type Department Care Team ([facility] Contact Info) Description 09/08/[address] [facility] [address] [place] [address] Anselmo Ham MD [address] [place] [phone] Muscle strain of left upper back, initial encounter Social History Tobacco Use Types Packs/Day Years Used Date Smoking Tobacco: Never Smokeless Tobacco: Never Sex and Gender Information Value Date Recorded Sex Assigned at Male 05/30/2022 10:22 AM EDT Legal Sex Male 10:22 AM EDT Gender Identity Male 05/30/2022 10:22 AM EDT Sexual Orientation Straight 05/30/2022 10 :22 AM EDT COVID-19 Exposure Response Date Recorded In the last 10 days, have yo u been in contact with someone who was confirmed or suspected to have Coronavirus/COVID-19? No / Unsure 09/08/2022 10:26 AM EST documented as of this encounter Plan of Treatment Not on file documented as of this encounter Visit Diagnoses Diagnosis Muscle strain of left upper back, initial encounter documented in this encounter Care Teams Elementary Vocal Music Teacher Relationship Specialty Start Date End Date Name, MD Jaiden [address] [place] [address] PCP - General Family Medicine 03/10/22 documented as of this encounter
--- OUTSIDE RECORDS SUMMARY | 2025-04-28 11:37 | XMS_ITS | Clinical Summary ---
Author Organization [facility] Address [address] [place] [address] Phone Care Team Providers Care Care Coordinator Name Role Phone Unavailable Primary Care Provider Unavailabl e Immunizations Immunization Administration Dates Next Due DTP 05/30/1996,03/30/1996,01/28/1996 DTaP 5 01/11/2000,03/30/1997 H1N1 07/09/2009 Hep B, ped/adol 10/28/1996,01/28/1996,1995 Hib (HbOC) 01/27/1997, 6,03/30/1996, 996 IPV 01/11/2000, 6,03/30/1996, 996 Influenza Split 07/29/2010 Influenza, injectable, trivalent 07/09/2009,05/01 MMR 01/11/2000,01/27/1997 Meningococcal Conj (Menactra) MCV4P 05/29/2007 Tdap 05/29/2007 Family History Relation Name Status Comments Other 1 Family history of Migraines Other 2 Family history of Migraines Social History Tobacco Use Types Packs/Day Years Used Date Smoking Tobacco: Never Assessed Sex and Gender Information Value Date Recorded Sex Assigned at Not on file Legal Sex Male 4:36 PM EDT Gender Identity Not on file Sexual Orientation Not on file Last Filed Vital Signs Vital Sign Reading Time Taken Comments Blood Pressure 158/58 07/29/2010 12:00 AM EST Pulse - - Temperature 36.1 C (97 F) 04/28/2010 12:00 AM EDT Respiratory Rate - - Oxygen Saturation - - Inhaled Oxygen Concentration - - Weight 65.8 kg (145 lb) 07/29/2010 12:00 AM EST Height 174 cm (5' 8.5 ) 07/29/2010 12:00 AM EST Body Mass Index 21.73 07/29/2010 12:00 AM EST Plan of Treatment Health Maintenance Due Date Last Done Comments Varicella Vaccines (1 of 2 - 13+ 2-dose series) 11/08/2008 DTaP,Tdap,and Td Vaccines (7 - Td or Tdap) 05/29/2017 05/29/2007, 01/11/2000, 03/30/1997, Additional history exists HPV Vaccines (1 - 3-dose SCDM series) 11/08/2022 Influenza Vaccines (#1) 2025 07/29/20, 07/09/2009, 05/27/2008 COVID-19 Vaccine ( season) 2025 Hepatitis B Vaccines Completed 10/28/1996, 01/28/1996, 1995 HIB Vaccines Completed 01/27/1997, 05/02, 03/30/1996, Additional history exists IPV Vaccines Completed 01/11/2000, 05/02, 03/30/1996, Additional history exists MMR Vaccines Completed 01/11/2000, 01/27/1997 Meningococcal Vaccine Aged Out 05/29/2007 No patricia francheska eligible based on patient's age to complete this topic Hepatitis A Vaccines Aged Out No long er eligible based on patient's age to complete this topic Men B Vaccine Aged Out No longer elig ible based on patient's age to complete this topic Pneumococcal Vaccine Aged Out No long er eligible based on patient's age to complete this topic
--- NOTE | 2025-04-28 12:04 | PC.NURSE ---
Splint applied. Pt given discharge information. Pt verbalized understanding to ice and elevate, wear brace. Tolerating brace well. DC'd to self, ambulated off the unit. Pain now 03/09
[2025-04-28 12:05] VITALS: BP 120/64; PULSE 54; RESP 15; TEMP 36.3; O2SAT 99
== END 2025-04-28 12:06 | disposition home or self-care (01) ==
PROVIDERS: Emergency Provider Emergency Medicine; PCP Internal Medicine Geriatric Medicine
DX: S63.8X2A Sprain of other part of left wrist and hand, initial encounter (principal); S66.812A Strain of other specified muscles, fascia and tendons at wrist and hand level, left hand, initial encounter; W10.8XXA Fall (on) (from) other stairs and steps, initial encounter; Y93.89 Activity, other specified; Y92.89 Other specified places as the place of occurrence of the external cause; Y99.8 Other external cause status
CPT/HCPCS: 73110; 73130; 96372; 99284; J1885

== ENCOUNTER → 2025-04-28 10:07 | Outpatient (BNV) | payer MEDICAID, SELFPAY | PROVIDERS: Emergency Provider Emergency Medicine; PCP Internal Medicine Geriatric Medicine; Visit Provider Radiology Diagnostic Radiology | DX: M25.532 Pain in left wrist (principal); M79.642 Pain in left hand; W20.8XXA Other cause of strike by thrown, projected or falling object, initial encounter | CPT/HCPCS: 73110; 73130 ==

== ENCOUNTER 2025-07-03 14:13 | Outpatient (REF) | payer MEDICAID, SELFPAY ==
--- NOTE | ~2025-07-03 | XR_ITS ---
EXAMINATION: XR RIBS, RIGHT CLINICAL INFORMATION: Increasing rib pain COMPARISON: May 08, 2022. TECHNIQUE: PA view chest. Oblique views right hemithorax. FINDINGS: No consolidation, pleural effusion or pneumothorax. No gross hyperinflation. Cardiomediastinal silhouette size is normal. No acute deformities in the ribs of the right hemithorax. No lytic or blastic lesions. S-shaped curvature of the thoracolumbar spine which could be positional. XR/XR ribs RT min 3V w CXR1V IMPRESSION: No acute airspace disease. No acute rib fractures, right hemithorax. Mild scoliosis versus patient positioning. Electronically signed by: Wili Edouard MD 07/03/2025 02:54 PM EST
== END 2025-07-03 14:14 | disposition home or self-care (01) ==
LOC: HO.HHCX 14:13
PROVIDERS: Visit Provider Nurse Practitioner Family
DX: R07.89 Other chest pain (principal)
CPT/HCPCS: 71101

== ENCOUNTER → 2025-07-03 14:13 | Outpatient (BNV) | payer MEDICAID, SELFPAY | PROVIDERS: Visit Provider Radiology Diagnostic Radiology | DX: R07.89 Other chest pain (principal) | CPT/HCPCS: 71101 ==